=== PATIENT | female | born 1965 | race Caucasian/White ===

== ENCOUNTER 2023-01-24 19:53 | Outpatient (CLI) | payer BC, SELFPAY | END 2023-01-24 19:54 | disposition home or self-care (01) | LOC: SLEEP 19:55 | PROVIDERS: PCP Physician Assistant; Visit Provider Internal Medicine | DX: G47.33 Obstructive sleep apnea (adult) (pediatric) (principal) | CPT/HCPCS: 95810; 95811 ==

== ENCOUNTER 2023-02-15 07:36 | Inpatient (IN) | payer BC, SELFPAY ==
[2023-02-15] VITALS (25 sets, daily range): BP systolic 92–134; BP diastolic 46–94; PULSE 65–90; RESP 14–20; TEMP 36.8–37.4; O2SAT 90–98; BMI 31.1
[2023-02-15] MEDS: LACTATED RINGERS 1000 ML 1,000 ML 100 ML IV ×2 (08:10→18:32)
[2023-02-15] MEDS: SODIUM CHLORIDE 0.9 % (FLUSH) 10 ML SYRINGE IVF (08:10)
[2023-02-15] MEDS: BUPIVACAINE 0.25% 30 ML INJECTION (10:58)
--- NOTE | 2023-02-15 11:44 | W.ANESCHARGE ---
Anesthesia Charges Start Date/Time Anesthesia Start Date: 02/15/23 Anesthesia Start Time: 09:07 Stop Date/Time Anesthesia Stop Date: 02/15/23 Anesthesia Stop Time: 14:30
--- NOTE | 2023-02-15 12:03 | SUR.OPER ---
Call placed to Ary, patients' sister and update was given.
--- NOTE | 2023-02-15 14:11 | SUR.OPER ---
Time out completed prior to bilaterally tap blocks with Charleen Parra MD
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
--- NOTE | 2023-02-15 14:27 | W.PM.NB ---
Nerve Block Nerve Block Time Seen by Provider: 02:19 Date Seen: 02/15/23 Type of block requested by surgeon for post-operative analgesia: TAP Side: bilateral Time out performed: Yes Verification of patient name: Yes Verification of date of : Yes Site marking: site marked Name of person performing procedure: Fidel Continuous monitoring Was continuous monitoring of O2 sat, B/P, game preserve manager, recorded every 15 minutes?: Yes Procedure Checklist: sterile prep, needles and gloves Ultrasound guided. Images saved: Yes Medications given in 5ml increments after negative aspiration: Marcaine %: 0.25 mL: 30 Needle gauge: 20 and Exparel mL: 10 Patient tolerated procedure well: Yes Additional comments: Needle noted adjacent to nerve Block Charges Block Charge (with Pro Fee): TAP Bilateral Use of Ultrasound Machine for Block: Yes- US Guidance/pain block
--- NOTE | 2023-02-15 14:33 | W.ANESCHARGE ---
Anesthesia Charges Start Date/Time Anesthesia Start Date: 02/15/23 Anesthesia Start Time: 09:07 Stop Date/Time Anesthesia Stop Date: 02/15/23 Anesthesia Stop Time: 14:30
[2023-02-15] MEDS: fentaNYL 100 MCG/2 ML inj 50 MCG IVP ×2 (14:42→15:08)
[2023-02-15] MEDS: HYDROmorphone 0.5 mg/0.5 ml inj IVP ×3 (15:18→15:52)
--- NOTE | 2023-02-15 19:36 | CRLHL7_ITS ---
For Patients: As a result of the Century Cures Act, medical imaging exams and procedure reports are released immediately into your electronic medical record. You may view this report before your referring provider. If you have questions, please contact your health care provider. INDICATION: Respiratory distress. TECHNIQUE: Chest 1 views. COMPARISON: None. FINDINGS: Cardiovascular and mediastinum: Prominent heart size accentuated by low lung volumes. Lungs and pleural spaces: Low lung volumes. Coarse interstitial markings. Lungs are clear. No sign of infiltrate or mass. No sign of pleural effusion. No pneumothorax. Bones and soft tissues: No significant findings. IMPRESSION: Prominent heart size and coarse interstitial markings, accentuated by low lung volumes. No focal consolidations. Dictated by Jann Padilla MD @ 02/15/2023 8:19:28 PM (Electronically Signed)
[2023-02-15] MEDS: HYDROCODONE-ACETAMIN 5-325 MG 1 TAB PO (22:52)
[2023-02-15] MEDS: ACETAMINOPHEN 325 MG TABLET 650 MG PO (22:52)
--- NOTE | 2023-02-15 23:23 | PC.NURSE ---
Shift [id number]- Patient returns from PACU at approximately 1530. She is requiring 2L O2 via nasal cannula initially, but oxygen needs increase and patient is switched to oxymask at 3L due to mouth breathing. Breathing also sounds gurgly and wet. RN aggressive with pulmonary toileting- cough, deep breath, IS, and eventually aerobika. Upon entering at one point, RN noticed vomit under patient's oxymask- unwitnessed episode. Patient still sleepy from sx. Marcus Duque updated- see new orders. Abdominal binder is loosened per . Dr. Mckoy also consults. As patient became slightly more alert throughout evening and after continuing aggressive pulmonary toileting, oxygen was able to be weaned down to 1L O2. She is quite painful this evening- PRN pain medication administered. Ice applied to abdomen throughout.
--- NOTE | 2023-02-15 23:38 | PM.IMPN1 ---
Progress Note: A&P Assessment and plan (1) Hypoxemia requiring supplemental oxygen: Problem details: Impart this is from the lingering effects of the anesthesia that she received. Additionally she has atelectasis clinically bibasilarly and radiographically on the left. With her prominent aortic stenosis will need to consider the possibility of evolving heart failure. Status: Acute (2) Status post repair of ventral hernia: Status: Acute (3) Aortic valve stenosis: Status: Acute Plan 1. Will follow with surgery while patient is in hospital. 2. Attempt to wean off oxygen as she becomes more arousable. 3. Will check a brain atretic peptide level, troponin I, electrocardiogram. Will review her outside medical records and consider the possibility of ordering echocardiogram as well. Time Spent With Patient Total time spent: 30 minutes Subjective Time Seen by Provider: 21:00 Date Seen: 02/15/23 Interval history: 57-year-old woman who underwent an elective ventral hernia repair today. Patient's general surgeon, Dr. Saleh, asked the hospitalist to assist with patient's postop hypoxia. Patient ordinarily does not require oxygen support at home. Postoperatively patient continue to require oxygen. On arrival to the floor patient was receiving oxygen at 2 liters/minute via nasal cannula. Shortly after arriving to the floor her oxygen needs increased such that she was requiring OxyMask use at 3-4 liters/minute. When patient started to awake and be more interactive she was requiring less oxygen and now the oxygen administration is being decreased according to her needs. While patient was on the OxyMask at 3-4 liters/minute she did have an episode of regurgitation. Her oxygen needs did not increase after this. In fact as patient became more arousable her oxygen needs decreased subsequently. Exam Narrative: Exam Narrative: Patient is awake and in no acute distress. Appears comfortable. Has OxyMask on at 3 liters/minute. Saturating 98%. Alert, oriented to self, place, time, situation. Friendly, cooperative, articulate. Mood and affect are congruent. Airway is clear. Mallampati 2 airway. Neck is supple. Midline trachea. Lungs are clear save some bibasilar end inspiratory rales, left more so than right. Heart tones with regular rhythm, normal S1-S2. Grade 3/6 systolic murmur right upper sternal border. Abdomen is soft. Moves all 4 extremities. No focal motor neurologic deficits. Const: Vital Signs, click to edit/add: Vital Signs - 24 hr 02/15/23 08:02 02/15/23 14:27 02/15/23 14:35 Temperature 98.3 F 98.2 F Pulse Rate 82 80 79 Pulse Rate [Right Pulse Oximeter] Respiratory Rate 16 16 16 Blood Pressure 131/64 112/63 132/81 Blood Pressure [Le ft Arm] Pulse Oximetry 94 98 98 Oxygen Delivery Me thod Room Air OxyMask OxyMask Oxygen Flow Rate 6 6 02/15/23 14:40 02/15/23 14:45 02/15/23 14:50 Temperature Pulse Rate 77 75 72 Pulse Rate [Right Pulse Oximeter] Respiratory Rate 16 16 16 Blood Pressure 117/56 L 112/66 114/68 Blood Pressure [Le ft Arm] Pulse Oximetry 98 97 95 Oxygen Delivery Me thod Nasal Cannula Nasal Cannula Nasal Cannula Oxygen Flow Rate 4 4 4 02/15/23 15:10 02/15/23 14:55 02/15/23 15:00 Temperature Pulse Rate 69 73 68 Pulse Rate [Right Pulse Oximeter] Respiratory Rate 16 16 16 Blood Pressure 116/54 L 112/65 111/62 Blood Pressure [Le ft Arm] Pulse Oximetry 97 95 96 Oxygen Delivery Me thod Nasal Cannula Nasal Cannula Nasal Cannula Oxygen Flow Rate 4 4 4 02/15/23 15:05 02/15/23 15:15 02/15/23 15:20 Temperature Pulse Rate 69 71 68 Pulse Rate [Right Pulse Oximeter] Respiratory Rate 16 16 16 Blood Pressure 123/67 122/59 L 110/46 L Blood Pressure [Le ft Arm] Pulse Oximetry 97 97 97 Oxygen Delivery Me thod Nasal Cannula Nasal Cannula Nasal Cannula Oxygen Flow Rate 4 4 4 02/15/23 15:25 02/15/23 15:30 02/15/23 15:30 Temperature Pulse Rate 65 77 Pulse Rate [Right Pulse Oximeter] 77 Respiratory Rate 16 14 14 Blood Pressure 102/64 Blood Pressure [Le ft Arm] 125/75 125/75 Pulse Oximetry 97 96 Oxygen Delivery Me thod Nasal Cannula Nasal Cannula Nasal Cannula Oxygen Flow Rate 4 2 2 02/15/23 15:45 02/15/23 16:00 02/15/23 16:15 Temperature 98.2 F Pulse Rate Pulse Rate [Right Pulse Oximeter] 90 67 67 Respiratory Rate 14 14 14 Blood Pressure Blood Pressure [Le ft Arm] 134/59 L 123/66 102/64 Pulse Oximetry 95 95 90 Oxygen Delivery Me thod Nasal Cannula Nasal Cannula OxyMask Oxygen Flow Rate 2 1 3 02/15/23 17:00 02/15/23 16:30 02/15/23 17:30 Temperature Pulse Rate Pulse Rate [Right Pulse Oximeter] 65 70 72 Respiratory Rate 18 16 18 Blood Pressure Blood Pressure [Le ft Arm] 93/68 111/65 102/63 Pulse Oximetry 91 93 91 Oxygen Delivery Me thod OxyMask OxyMask OxyMask Oxygen Flow Rate 3 3 3 02/15/23 18:00 02/15/23 19:00 02/15/23 20:00 Temperature 99.1 F Pulse Rate Pulse Rate [Right Pulse Oximeter] 85 75 86 Respiratory Rate 18 18 18 Blood Pressure Blood Pressure [Le ft Arm] 92/69 98/52 L 100/70 Pulse Oximetry 91 95 95 Oxygen Delivery Me thod OxyMask OxyMask OxyMask Oxygen Flow Rate 3 2 2 02/15/23 21:00 Temperature Pulse Rate Pulse Rate [Right Pulse Oximeter] 76 Respiratory Rate 18 Blood Pressure Blood Pressure [Le ft Arm] 102/94 H Pulse Oximetry 98 Oxygen Delivery Me thod OxyMask Oxygen Flow Rate 2 Documenting provider has reviewed patient's vital signs: yes Imaging Chest x-ray: Attestation: I have reviewed the pertinent imaging results. Radiologist's impression: Lung neely in the setting of low inspiration have some coarse markings with left lower lobe atelectatic changes. No obvious infiltrates. No masses. No pneumothorax. Cardiac silhouette is prominent.
[2023-02-16] VITALS (8 sets, daily range): BP systolic 87–145; BP diastolic 48–121; PULSE 70–91; RESP 16–22; TEMP 36.9–37.3; O2SAT 89–96
[2023-02-16 02:11] LABS: NT Pro B Type NatriureticPept* 1740 pg/mL; Troponin I* < 0.01 ng/mL (0.01-0.04)
[2023-02-16] MEDS: LACTATED RINGERS 1000 ML 1,000 ML 100 ML IV (04:11)
[2023-02-16] MEDS: HYDROmorphone 0.5 mg/0.5 ml inj IVP ×2 (04:21→11:49)
[2023-02-16 06:14] LABS: HCO3 VBG 31 mmol/L (21-28); PCO2 VBG 54 mmHG (40-50); PO2 VBG 45.2 mmHG (25-47)
[2023-02-16 06:29] LABS: Hematocrit 32.7 % (33.0-51.0); Hemoglobin* 10.2 gm/dL (12.0-16.0); Mean Corpuscular HGB Conc 31 gm/dL (32-36); Mean Corpuscular Hemoglobin 29 pg (26-34); Mean Corpuscular Volume 94 fL (80-100); Platelet Count* 236 K/uL (140-440); Red Blood Count 3.48 m/uL (4.00-5.20); White Blood Count* 7.44 K/uL (4.50-11.00)
[2023-02-16 06:34] LABS: Slide Review Reflex No
[2023-02-16 06:47] LABS: D Dimer Quantitative* 0.95 ug/ml (0.00-0.50)
[2023-02-16 07:11] LABS: Troponin I* < 0.01 ng/mL (0.01-0.04)
--- NOTE | 2023-02-16 08:01 | PC.NURSE ---
Pt alert and oriented x3. Afebrile. Pt reports pain 5-6/10 in abdomen, pain managed with PRN medications. Pt abdominal dressing is CDI. Pt is on 1 L of nasal cannula O2 stats have been between 93-96%. Pt denies SOB, chest pain, and N/V. Pt is up A1 with walker and gait belt. Pt is tolerating liquids and ice chips.
[2023-02-16] MEDS: ACETAMINOPHEN 325 MG TABLET 650 MG PO (08:03)
[2023-02-16] MEDS: HYDROCODONE-ACETAMIN 5-325 MG 1 TAB PO ×3 (08:38→18:48)
--- NOTE | 2023-02-16 11:41 | PM.GSPN ---
Subjective Subjective Date Seen: 02/16/23 Interval history: Patient was having shortness of breath last night. She was sleepy postoperatively. The nurse also noted may be vomit on her oxygen mask. Patient has not had anything to eat or drink last night since her surgery. Chest x-ray was obtained and showed low lung volumes but no consolidation. Her troponin was negative. Today patient still complains of difficulties taking a deep breath. She received IV pain medication only once and oral pain medication was avoided to let her wake up more. Patient has not been out of bed. She had good urine output overnight. Her SUSANNA drain only had 20 mL out. Exam Narrative: Exam Narrative: Abdomen is not distended, somewhat tender to palpation on the left side but not on the right side. SUSANNA drain with scant amount of dark blood in the tubing. Surgical incision is clean and dry. Const: Vital Signs, click to edit/add: Vital Signs - 24 hr 02/15/23 14:27 02/15/23 14:35 02/15/23 14:40 Temperature 98.2 F Pulse Rate 80 79 77 Pulse Rate [Right Pulse Oximeter] Respiratory Rate 16 16 16 Blood Pressure 112/63 132/81 117/56 L Blood Pressure [Le ft Arm] Pulse Oximetry 98 98 98 Oxygen Delivery Me thod OxyMask OxyMask Nasal Cannula Oxygen Flow Rate 6 6 4 02/15/23 14:45 02/15/23 14:50 02/15/23 15:10 Temperature Pulse Rate 75 72 69 Pulse Rate [Right Pulse Oximeter] Respiratory Rate 16 16 16 Blood Pressure 112/66 114/68 116/54 L Blood Pressure [Le ft Arm] Pulse Oximetry 97 95 97 Oxygen Delivery Me thod Nasal Cannula Nasal Cannula Nasal Cannula Oxygen Flow Rate 4 4 4 02/15/23 14:55 02/15/23 15:00 02/15/23 15:05 Temperature Pulse Rate 73 68 69 Pulse Rate [Right Pulse Oximeter] Respiratory Rate 16 16 16 Blood Pressure 112/65 111/62 123/67 Blood Pressure [Le ft Arm] Pulse Oximetry 95 96 97 Oxygen Delivery Me thod Nasal Cannula Nasal Cannula Nasal Cannula Oxygen Flow Rate 4 4 4 02/15/23 15:15 02/15/23 15:20 02/15/23 15:25 Temperature Pulse Rate 71 68 65 Pulse Rate [Right Pulse Oximeter] Respiratory Rate 16 16 16 Blood Pressure 122/59 L 110/46 L 102/64 Blood Pressure [Le ft Arm] Pulse Oximetry 97 97 97 Oxygen Delivery Me thod Nasal Cannula Nasal Cannula Nasal Cannula Oxygen Flow Rate 4 4 4 02/15/23 15:30 02/15/23 15:30 02/15/23 15:45 Temperature 98.2 F Pulse Rate 77 Pulse Rate [Right Pulse Oximeter] 77 90 Respiratory Rate 14 14 14 Blood Pressure Blood Pressure [Le ft Arm] 125/75 125/75 134/59 L Pulse Oximetry 96 95 Oxygen Delivery Me thod Nasal Cannula Nasal Cannula Nasal Cannula Oxygen Flow Rate 2 2 2 02/15/23 16:00 02/15/23 16:15 02/15/23 17:00 Temperature Pulse Rate Pulse Rate [Right Pulse Oximeter] 67 67 65 Respiratory Rate 14 14 18 Blood Pressure Blood Pressure [Le ft Arm] 123/66 102/64 93/68 Pulse Oximetry 95 90 91 Oxygen Delivery Me thod Nasal Cannula OxyMask OxyMask Oxygen Flow Rate 1 3 3 02/15/23 16:30 02/15/23 17:30 02/15/23 18:00 Temperature Pulse Rate Pulse Rate [Right Pulse Oximeter] 70 72 85 Respiratory Rate 16 18 18 Blood Pressure Blood Pressure [Le ft Arm] 111/65 102/63 92/69 Pulse Oximetry 93 91 91 Oxygen Delivery Me thod OxyMask OxyMask OxyMask Oxygen Flow Rate 3 3 3 02/15/23 19:00 02/15/23 20:00 02/15/23 21:00 Temperature 99.1 F Pulse Rate Pulse Rate [Right Pulse Oximeter] 75 86 76 Respiratory Rate 18 18 18 Blood Pressure Blood Pressure [Le ft Arm] 98/52 L 100/70 102/94 H Pulse Oximetry 95 95 98 Oxygen Delivery Me thod OxyMask OxyMask OxyMask Oxygen Flow Rate 2 2 2 02/15/23 23:50 02/15/23 23:50 02/16/23 03:55 Temperature 99.4 F 98.5 F Pulse Rate Pulse Rate [Right Pulse Oximeter] 76 70 Respiratory Rate 20 20 18 Blood Pressure Blood Pressure [Le ft Arm] 99/55 L 94/49 L Pulse Oximetry 93 93 96 Oxygen Delivery Me thod Nasal Cannula Nasal Cannula OxyMask Oxygen Flow Rate 1 1 1 02/16/23 07:00 02/16/23 07:00 02/16/23 07:00 Temperature 99.1 F Pulse Rate Pulse Rate [Right Pulse Oximeter] 81 81 Respiratory Rate 22 22 22 Blood Pressure Blood Pressure [Le ft Arm] 96/61 Pulse Oximetry 92 92 Oxygen Delivery Me thod Nasal Cannula Nasal Cannula Oxygen Flow Rate 1 1 02/16/23 11:09 02/16/23 11:10 Temperature 99 F Pulse Rate Pulse Rate [Right Pulse Oximeter] 80 85 Respiratory Rate 16 Blood Pressure Blood Pressure [Le ft Arm] 96/48 L 87/50 L Pulse Oximetry 93 Oxygen Delivery Me thod Nasal Cannula Oxygen Flow Rate 1 Progress Note: A&P Assessment and plan (1) Status post repair of ventral hernia: Status: Acute Assessment and Plan: 57-year-old female s/p open ventral hernia repair with mesh POD 1. Patient underwent a large hernia repair. I expect that she will need postoperative pain control. She made good amount of urine overnight. We will remove her Sheehan catheter. Patient will continue wearing her abdominal binder on at all times. SUSANNA drain was minimal amount of bloody drainage. I discussed with the patient that she needs to walk at least 3 times a day and use incentive spirometer as much as possible. We can advance her to clear liquid diet but I discussed with the patient to go slow with advancement. Patient is not ready to go home today.
[2023-02-16] MEDS: SERTRALINE 50 MG TABLET 75 MG PO (11:49)
[2023-02-16 11:51] LABS: Chloride* 105 mmol/L (96-114); Potassium* 3.2 mmol/L (3.6-5.1); Sodium* 136 mmol/L (135-149)
[2023-02-16 11:53] LABS: Bilirubin Total* 0.3 mg/dL (0.1-1.5); Creatinine* 0.6 mg/dL (0.5-1.5); Est. Creatinine Clearance* 90.84; Estimated Glomerular Filt Rate 103 ml/min
[2023-02-16 11:54] LABS: Alanine Aminotransferase* 15 U/L (4-35); Alkaline Phosphatase* 76 U/L (40-150); Aspartate Amino Transferase* 27 U/L (12-35); Blood Urea Nitrogen* 6 mg/dL (7-30); Carbon Dioxide* 29 mmol/L (20-32); Glucose* 104 mg/dL (60-115)
[2023-02-16 11:55] LABS: Magnesium* 1.6 mg/dL (1.5-2.6)
[2023-02-16 12:11] LABS: Procalcitonin* 0.08 ng/mL (<0.50)
[2023-02-16 12:25] LABS: Thyroid Stimulating Hormone* 0.465 uIU/mL (0.270-4.20)
--- NOTE | 2023-02-16 16:12 | PM.IMPN1 ---
Progress Note: A&P Assessment and plan (1) Status post repair of ventral hernia: Problem details: - Dr. Saleh of General Surgery 02/15 Status: Acute (2) Hypoxemia requiring supplemental oxygen: Problem details: - ddx: iatrogenic from anesthesia, bibasilar atelectasis, h/o Status: Acute (3) Aortic valve stenosis: Problem details: - repeat limited TTE today Status: Acute Plan - improving, continue to taper supplemental oxygen as tolerated - continue IS at regular intervals Subjective Date Seen: 02/16/23 Interval history: No acute events overnight. Sarah has been able to wean down her supplemental oxygen (currently on 1L per NC). No concerns for hospitalist team today. Exam Narrative: Exam Narrative: GEN: Alert and oriented, sitting comfortably in bedside chair, nontoxic in appearance HEENT: Edentulous, EOMIs bilaterally, no scleral icterus CV: RRR, harsh systolic murmur heard best at left sternal border R: LCTA bilaterally without concerning wheezing Skin: No concerning skin lesions or rashes on exposed skin Neuro: Nonfocal Psych: Appropriate Const: Vital Signs, click to edit/add: Vital Signs - 24 hr 02/15/23 16:15 02/15/23 17:00 02/15/23 16:30 Temperature Pulse Rate [Right Pulse Oximeter] 67 65 70 Pulse Rate [orthos tatic lying Right] Pulse Rate [orthos tatic sitting Righ t] Pulse Rate [orthos tatic standing Rig ht] Respiratory Rate 14 18 16 Blood Pressure [Le ft Arm] 102/64 93/68 111/65 Blood Pressure [or thostatic lying Ri ght Arm] Blood Pressure [or thostatic sitting Right Arm] Blood Pressure [or thostatic standing Right Arm] Pulse Oximetry 90 91 93 Oxygen Delivery Me thod OxyMask OxyMask OxyMask Oxygen Flow Rate 3 3 3 02/15/23 17:30 02/15/23 18:00 02/15/23 19:00 Temperature 99.1 F Pulse Rate [Right Pulse Oximeter] 72 85 75 Pulse Rate [orthos tatic lying Right] Pulse Rate [orthos tatic sitting Righ t] Pulse Rate [orthos tatic standing Rig ht] Respiratory Rate 18 18 18 Blood Pressure [Le ft Arm] 102/63 92/69 98/52 L Blood Pressure [or thostatic lying Ri ght Arm] Blood Pressure [or thostatic sitting Right Arm] Blood Pressure [or thostatic standing Right Arm] Pulse Oximetry 91 91 95 Oxygen Delivery Me thod OxyMask OxyMask OxyMask Oxygen Flow Rate 3 3 2 02/15/23 20:00 02/15/23 21:00 02/15/23 23:50 Temperature Pulse Rate [Right Pulse Oximeter] 86 76 Pulse Rate [orthos tatic lying Right] Pulse Rate [orthos tatic sitting Righ t] Pulse Rate [orthos tatic standing Rig ht] Respiratory Rate 18 18 20 Blood Pressure [Le ft Arm] 100/70 102/94 H Blood Pressure [or thostatic lying Ri ght Arm] Blood Pressure [or thostatic sitting Right Arm] Blood Pressure [or thostatic standing Right Arm] Pulse Oximetry 95 98 93 Oxygen Delivery Me thod OxyMask OxyMask Nasal Cannula Oxygen Flow Rate 2 2 1 02/15/23 23:50 02/16/23 03:55 02/16/23 07:00 Temperature 99.4 F 98.5 F 99.1 F Pulse Rate [Right Pulse Oximeter] 76 70 81 Pulse Rate [orthos tatic lying Right] Pulse Rate [orthos tatic sitting Righ t] Pulse Rate [orthos tatic standing Rig ht] Respiratory Rate 20 18 22 Blood Pressure [Le ft Arm] 99/55 L 94/49 L 96/61 Blood Pressure [or thostatic lying Ri ght Arm] Blood Pressure [or thostatic sitting Right Arm] Blood Pressure [or thostatic standing Right Arm] Pulse Oximetry 93 96 92 Oxygen Delivery Me thod Nasal Cannula OxyMask Nasal Cannula Oxygen Flow Rate 1 1 1 02/16/23 07:00 02/16/23 07:00 02/16/23 11:09 Temperature 99 F Pulse Rate [Right Pulse Oximeter] 81 80 Pulse Rate [orthos tatic lying Right] Pulse Rate [orthos tatic sitting Righ t] Pulse Rate [orthos tatic standing Rig ht] Respiratory Rate 22 22 16 Blood Pressure [Le ft Arm] 96/48 L Blood Pressure [or thostatic lying Ri ght Arm] Blood Pressure [or thostatic sitting Right Arm] Blood Pressure [or thostatic standing Right Arm] Pulse Oximetry 92 93 Oxygen Delivery Me thod Nasal Cannula Nasal Cannula Oxygen Flow Rate 1 1 02/16/23 11:10 02/16/23 11:28 02/16/23 15:00 Temperature 98.7 F Pulse Rate [Right Pulse Oximeter] 85 81 Pulse Rate [orthos tatic lying Right] 84 Pulse Rate [orthos tatic sitting Righ t] 91 Pulse Rate [orthos tatic standing Rig ht] 91 Respiratory Rate 20 Blood Pressure [Le ft Arm] 87/50 L 115/66 Blood Pressure [or thostatic lying Ri ght Arm] 117/61 Blood Pressure [or thostatic sitting Right Arm] 142/121 H Blood Pressure [or thostatic standing Right Arm] 145/74 H Pulse Oximetry 90 Oxygen Delivery Me thod Nasal Cannula Oxygen Flow Rate 1 02/16/23 15:00 02/16/23 15:00 Temperature Pulse Rate [Right Pulse Oximeter] 81 Pulse Rate [orthos tatic lying Right] Pulse Rate [orthos tatic sitting Righ t] Pulse Rate [orthos tatic standing Rig ht] Respiratory Rate 20 20 Blood Pressure [Le ft Arm] Blood Pressure [or thostatic lying Ri ght Arm] Blood Pressure [or thostatic sitting Right Arm] Blood Pressure [or thostatic standing Right Arm] Pulse Oximetry 90 Oxygen Delivery Me thod Nasal Cannula Oxygen Flow Rate 1 Labs Labs: Laboratory Results - last 24 hr 02/16/23 02/16/23 01:10 06:06 WBC 7.44 RBC 3.48 L Hgb 10.2 L Hct 32.7 L MCV 94 MCH 29 MCHC 31 L Plt Count 236 D-Dimer Quant (PE/DVT) 0.95 H VBG pH 7.370 VBG pCO2 54 H VBG pO2 45.2 VBG HCO3 31 H Sodium 136 Potassium 3.2 L Chloride 105 Carbon Dioxide 29 BUN 6 L Creatinine 0.6 Estimated Creat Clear 90.84 Estimated GFR 103 Glucose 104 Calcium 8.0 L Magnesium 1.6 Total Bilirubin 0.3 AST 27 ALT 15 Alkaline Phosphatase 76 Troponin I < 0.01 L < 0.01 L C-Reactive Protein 7.0 H NT-Pro-B Natriuret Pep 1740 Total Protein 6.0 Albumin 3.0 L Procalcitonin 0.08 TSH 0.465
[2023-02-16] MEDS: POTASSIUM CHLORIDE 10 MEQ CAPSULE ER PO (17:31)
--- NOTE | 2023-02-16 19:29 | PC.NURSE ---
End of Shift: Patient pleasant and cooperative. Patient vitally stable, lungs clear, BS hypoactive, IV running NS at 50ml. Patient SBA assist, and urinating. Patient rates pain at most 5/10, dilauded 0.5 mg given once and prn norco 2 tabs given when due. Abdominal incision C/D/I. Patient tolerating clear liquids, but not taking in too much so she does not have to urinate. Patient on 1 L NS sating 90-90%. Patient has walked the delvalle x3 with this health technical writer.
[2023-02-16] MEDS: LACTATED RINGERS 1000 ML 1,000 ML 50 ML IV (19:59)
[2023-02-17] VITALS (8 sets, daily range): BP systolic 101–132; BP diastolic 51–66; PULSE 69–91; RESP 16–20; TEMP 36.4–37.4; O2SAT 90–93
[2023-02-17] MEDS: HYDROCODONE-ACETAMIN 5-325 MG 1 TAB PO ×2 (02:12→18:56)
--- NOTE | 2023-02-17 06:19 | PC.NURSE ---
[id number] Pt pleasant and cooperative, pain controlled with prn oral pain medications. abd dressing C/D/I. Abd binder and ice to site, SUSANNA drain emptied q4h throughout shift. Tolerating ambulation, walked halls x1, to br and back to bed x4. Passing gas throughout shift, no N/V, chest pain. Pt encouraged to take deep breaths, IS and aerobika completed with vitals. Pt on 1 LPM O2 while at rest, Pt on RA when ambulating, O2 sats ranged from 52-76% when returned to bed after ambulating to br, she does acknowledge some lightheaded/dizziness with the hypoxia.
[2023-02-17 06:44] LABS: HCO3 VBG 30 mmol/L (21-28); PCO2 VBG 48 mmHG (40-50); PO2 VBG 74.5 mmHG (25-47); pH VBG 7.397 (7.32-7.43)
[2023-02-17 06:48] LABS: Basophils Absolute Auto 0.02 K/uL (0.00-0.30); Basophils Percent Auto 0.3 % (0.0-3.0); Eosinophils Absolute Auto 0.24 K/uL (0.00-0.50); Eosinophils Percent Auto 3.2 % (0.0-7.0); Hematocrit 32.3 % (33.0-51.0); Hemoglobin* 10.1 gm/dL (12.0-16.0); Immature Granulocytes Abs Auto 0.01 K/uL (0.00-0.30); Immature Granulocytes Pct Auto 0.1 %; Lymphocytes Percent Auto 19.4 % (20-44); Mean Corpuscular HGB Conc 31 gm/dL (32-36); Mean Corpuscular Hemoglobin 30 pg (26-34); Mean Corpuscular Volume 94 fL (80-100); Monocytes Percent Auto 8.9 % (0.0-11.0); Neutrophils Absolute Auto 5.16 K/uL (1.7-7.0); Neutrophils Percent Auto 68.1 % (42.0-72.0); Platelet Count* 248 K/uL (140-440); RDW Coefficient of Variation % 12.2 % (11.5-15.5); Red Blood Count 3.42 m/uL (4.00-5.20); White Blood Count* 7.57 K/uL (4.50-11.00)
[2023-02-17 07:17] LABS: Chloride* 104 mmol/L (96-114); Potassium* 3.2 mmol/L (3.6-5.1); Sodium* 136 mmol/L (135-149)
[2023-02-17 07:20] LABS: Blood Urea Nitrogen* 5 mg/dL (7-30); Carbon Dioxide* 28 mmol/L (20-32); Creatinine* 0.4 mg/dL (0.5-1.5); Est. Creatinine Clearance* 136.27; Estimated Glomerular Filt Rate 114 ml/min; Glucose* 94 mg/dL (60-115)
[2023-02-17 07:21] LABS: Calcium* 7.9 mg/dL (8.4-10.6)
[2023-02-17 07:33] LABS: Slide Review Reflex No
--- NOTE | 2023-02-17 08:00 | PM.GSPN ---
Subjective Subjective Date Seen: 02/17/23 Interval history: Patient is recovering well. Her pain is controlled with p.o. pain medication. She mostly complains of pain with movement. Her breathing is getting better. She is on 1 L of oxygen at night. She passed gas. She tolerated clears yesterday. Exam Narrative: Exam Narrative: Abdomen is soft, not distended, there is some tenderness to palpation in the left mid abdomen. Surgical incision was examined and Steri-Strips are intact. There is either faint erythema versus ecchymosis on the right side of surgical incision. SUSANNA drain with serosanguineous fluid in the bulb. Const: Vital Signs, click to edit/add: Vital Signs - 24 hr 02/16/23 11:09 02/16/23 11:10 02/16/23 11:28 Temperature 99 F Pulse Rate [Right Pulse Oximeter] 80 85 Pulse Rate [orthos tatic lying Right] 84 Pulse Rate [orthos tatic sitting Righ t] 91 Pulse Rate [orthos tatic standing Rig ht] 91 Respiratory Rate 16 Blood Pressure [Le ft Arm] 96/48 L 87/50 L Blood Pressure [or thostatic lying Ri ght Arm] 117/61 Blood Pressure [or thostatic sitting Right Arm] 142/121 H Blood Pressure [or thostatic standing Right Arm] 145/74 H Pulse Oximetry 93 Oxygen Delivery Me thod Nasal Cannula Oxygen Flow Rate 1 02/16/23 15:00 02/16/23 15:00 02/16/23 15:00 Temperature 98.7 F Pulse Rate [Right Pulse Oximeter] 81 81 Pulse Rate [orthos tatic lying Right] Pulse Rate [orthos tatic sitting Righ t] Pulse Rate [orthos tatic standing Rig ht] Respiratory Rate 20 20 20 Blood Pressure [Le ft Arm] 115/66 Blood Pressure [or thostatic lying Ri ght Arm] Blood Pressure [or thostatic sitting Right Arm] Blood Pressure [or thostatic standing Right Arm] Pulse Oximetry 90 90 Oxygen Delivery Me thod Nasal Cannula Nasal Cannula Oxygen Flow Rate 1 1 02/16/23 19:00 02/16/23 23:00 02/16/23 23:00 Temperature 98.9 F Pulse Rate [Right Pulse Oximeter] 82 Pulse Rate [orthos tatic lying Right] Pulse Rate [orthos tatic sitting Righ t] Pulse Rate [orthos tatic standing Rig ht] Respiratory Rate 18 18 20 Blood Pressure [Le ft Arm] 105/65 Blood Pressure [or thostatic lying Ri ght Arm] Blood Pressure [or thostatic sitting Right Arm] Blood Pressure [or thostatic standing Right Arm] Pulse Oximetry 89 94 Oxygen Delivery Me thod Nasal Cannula Nasal Cannula Oxygen Flow Rate 1 1 02/16/23 23:00 02/17/23 02:48 Temperature 98.4 F 98.9 F Pulse Rate [Right Pulse Oximeter] 83 89 Pulse Rate [orthos tatic lying Right] Pulse Rate [orthos tatic sitting Righ t] Pulse Rate [orthos tatic standing Rig ht] Respiratory Rate 20 20 Blood Pressure [Le ft Arm] 108/70 132/57 L Blood Pressure [or thostatic lying Ri ght Arm] Blood Pressure [or thostatic sitting Right Arm] Blood Pressure [or thostatic standing Right Arm] Pulse Oximetry 94 90 Oxygen Delivery Me thod Nasal Cannula Nasal Cannula Oxygen Flow Rate 1 1 Progress Note: A&P Assessment and plan (1) Status post repair of ventral hernia: Problem details: - Dr. Velazquez of General Surgery 02/15 Status: Acute Assessment and Plan: 57-year-old female s/p open ventral hernia repair POD 2. Patient is doing well. Will advance her diet to regular. I also will start her on MiraLax. I recommended to continue ambulating (patient walked 4 times yesterday). Will start her on Lovenox for DVT prophylaxis. Patient has faint erythema versus just postoperative ecchymosis to the right of her surgical incision. Since patient is obese and had large hernia repair with mesh, I will put her on Keflex prophylactically. If patient is doing well and is off oxygen today, she is able to discharge home tonight.
[2023-02-17] MEDS: SERTRALINE 50 MG TABLET 75 MG PO (08:31)
[2023-02-17] MEDS: cephALEXin 500 MG CAPSULE PO ×2 (08:32→21:43)
[2023-02-17] MEDS: POTASSIUM CHLORIDE 10 MEQ CAPSULE ER PO ×2 (08:32→18:26)
[2023-02-17] MEDS: polyethylene glycoL 3350 17 GM PACK PO (08:33)
[2023-02-17] MEDS: ACETAMINOPHEN 325 MG TABLET 650 MG PO ×2 (08:42→15:51)
--- NOTE | 2023-02-17 13:24 | PC.SOCIAL ---
Met with pt and pt's sister, Skyler, in pt's room. Pt's sister requested to meet with social work to discuss discharge plans. Pt's sister informed that pt lives at the [facility] and wondered if pt was going to be discharged with home health care orders for therapy. Informed pt and pt's sister that pt is not currently being evaluated by therapy. Pt's sister states that when pt gets up to transfer pt is getting out of breath easier. This worker will discuss with MD. Met with MD and discussed. MD states that pt will not discharge until pt is off oxygen. Provided pt's sister's concerns. MD will order therapy to evaluate. Met with pt and pt's sister in pt's room briefly and informed them that MD will complete a therapy order and therapy will assess pt. Pt and pt's sister agreed that would be best. Social work will follow up as necessary.
[2023-02-17] MEDS: LACTATED RINGERS 1000 ML 1,000 ML 50 ML IV (14:13)
--- NOTE | 2023-02-17 14:41 | CRLHL7_ITS ---
For Patients: As a result of the Century Cures Act, medical imaging exams and procedure reports are released immediately into your electronic medical record. You may view this report before your referring provider. If you have questions, please contact your health care provider. Indication: Hypoxia, elevated D-dimer Technique: CT chest with IV contrast, PE protocol Please note that all CT scans at this facility use dose modulation, iterative reconstruction, and/or weight-based dosing when appropriate to reduce radiation dose to as low as reasonably achievable. Comparison: None Findings: No supraclavicular mass or lymphadenopathy. Normal thyroid. The central airways appear patent. The esophagus is decompressed. Small hiatal hernia. Heart may be enlarged. Normal course and caliber of the thoracic aorta and the pulmonary arteries. No definite pulmonary artery filling defects. There are scattered prominent mediastinal lymph nodes, for example in AP window lymph node (series 4, image 52) measures 1.0 cm. No chest wall mass. Small bilateral pleural effusions. Bibasilar atelectasis. Probable interlobular septal thickening. No definite acute osseous abnormality. Impression: 1. No evidence of pulmonary embolism. 2. Small effusions and pulmonary edema. Please note that all CT scans at this facility use dose modulation, iterative reconstruction, and/or weight-based dosing when appropriate to reduce radiation dose to as low as reasonably achievable. Dictated by Leno Sanford MD @ 02/17/2023 5:56:39 PM (Electronically Signed)
--- NOTE | 2023-02-17 14:42 | PC.NURSE ---
Addendum entered by Jordyn Wang RN 02/17/23 15:29: Correction: Pt on 0.5 L O2 Addendum entered by Jordyn Wang RN 02/17/23 14:57: Sats dropped below 90. Ambulated x4 in the delvalle with one episode of lightheadedness and dizziness. Pt needing to sit in the chair. Complained of abd pain 4/10 PRN Tylenol given with relief. Regular diet for breakfast, pt only ate 20%. Declined lunch. SUSANNA drain patient and emptied per protocol. Abd dressing c/d/i. Original Note: Pt A&O. SBA with gait belt. Pt remains on 1 L of O2 with sats in the low 90s. Attempted to wean with no success, sats dropped to the low
--- NOTE | 2023-02-17 14:54 | PM.IMPN1 ---
Progress Note: A&P Assessment and plan (1) Status post repair of ventral hernia: Problem details: - Dr. Velazquez of General Surgery 02/15 Status: Acute (2) Hypoxemia requiring supplemental oxygen: Problem details: - ddx: iatrogenic from anesthesia, bibasilar atelectasis, - mildly elevated D-dimer noted; given patient's persistent hypoxia, will obtain CTA to evaluate Status: Acute (3) Aortic valve stenosis: Problem details: - repeat limited TTE 02/16: Final Impressions: Limited Echocardiogram performed 1. Technically limited exam. 2. Mild to moderate aortic stenosis [peak velocity 2.7 m/s, mean gradient 17 mmHg, and valve area 1.4 cm2]. The aortic valve appears trileaflet. 3. LVEF estimate 55-60%. Normal LV size and wall thickness. 4. Normal RV size and global function. 5. IVC not seen. Status: Acute Plan - per above - Lovenox for prophylaxis - will be appropriate for discharge home when stable on room air Subjective Date Seen: 02/17/23 Interval history: No acute events overnight. Patient has been unsuccessful in weaning off of oxygen totally. She seems to take shallow breath and has also struggled with successful IS. Limited repeat TTE on 02/16 exhibits stability regarding patient's . Exam Narrative: Exam Narrative: GEN: Alert and answering questions appropriately, sitting comfortably in bedside chair HEENT: Edentulous, EOMIs bilaterally, no scleral icterus CV: RRR, harsh systolic murmur heard best at left sternal border without concerning finding R: Decreased sounds bilateral bases, no tachypnea at rest Ext: wwp, no concerning edema Skin: No concerning skin lesions or rashes on exposed skin Neuro: Nonfocal Psych: Appropriate Const: Vital Signs, click to edit/add: Vital Signs - 24 hr 02/16/23 15:00 02/16/23 15:00 02/16/23 15:00 Temperature 98.7 F Pulse Rate [Right Pulse Oximeter] 81 81 Respiratory Rate 20 20 20 Blood Pressure [Le ft Arm] 115/66 Pulse Oximetry 90 90 Oxygen Delivery Me thod Nasal Cannula Nasal Cannula Oxygen Flow Rate 1 1 02/16/23 19:00 02/16/23 23:00 02/16/23 23:00 Temperature 98.9 F Pulse Rate [Right Pulse Oximeter] 82 Respiratory Rate 18 18 20 Blood Pressure [Le ft Arm] 105/65 Pulse Oximetry 89 94 Oxygen Delivery Me thod Nasal Cannula Nasal Cannula Oxygen Flow Rate 1 1 02/16/23 23:00 02/17/23 02:48 02/17/23 08:19 Temperature 98.4 F 98.9 F 98.4 F Pulse Rate [Right Pulse Oximeter] 83 89 91 Respiratory Rate 20 20 18 Blood Pressure [Le ft Arm] 108/70 132/57 L 123/66 Pulse Oximetry 94 90 92 Oxygen Delivery Me thod Nasal Cannula Nasal Cannula Nasal Cannula Oxygen Flow Rate 1 1 1 02/17/23 07:00 02/17/23 08:00 02/17/23 11:00 Temperature 98.2 F Pulse Rate [Right Pulse Oximeter] 84 Respiratory Rate 18 18 18 Blood Pressure [Le ft Arm] 102/51 L Pulse Oximetry 91 92 Oxygen Delivery Me thod Nasal Cannula Nasal Cannula Oxygen Flow Rate 1 0.5 Labs Labs: Laboratory Results - last 24 hr 02/17/23 05:49 WBC 7.57 RBC 3.42 L Hgb 10.1 L Hct 32.3 L MCV 94 MCH 30 MCHC 31 L RDW Coeff of Zev 12.2 Plt Count 248 Neut % (Auto) 68.1 Lymph % (Auto) 19.4 L [place] % (Auto) 8.9 Eos % (Auto) 3.2 Baso % (Auto) 0.3 Neut # (Auto) 5.16 Lymph # (Auto) 1.50 [place] # (Auto) 0.70 Eos # (Auto) 0.24 Baso # (Auto) 0.02 VBG pH 7.397 VBG pCO2 48 VBG pO2 74.5 H VBG HCO3 30 H Sodium 136 Potassium 3.2 L Chloride 104 Carbon Dioxide 28 BUN 5 L Creatinine 0.4 L Estimated Creat Clear 136.27 Estimated GFR 114 Glucose 94 Calcium 7.9 L
[2023-02-17] MEDS: ENOXAPARIN 40 MG/0.4 ML INJ SUBCUT (21:43)
--- NOTE | 2023-02-17 22:41 | PC.NURSE ---
Addendum entered by Nancy Fournier RN 02/17/23 22:57: SpO2 in bed WITHOUT supplemental o2 at 88-90%. No BM this shift, passing gas per pt. Bandage CDI. SUSANNA drain 32ml serosanguineous fluid Original Note: Nursing Care Hours: [id number] Pt this shift calm and cooperative with cares. Alert and oriented. Stable at 0.5L NC keeping sats above 93%. When at 97%, removed O2 and stable on RA at 94%. Amublated in delvalle without O2, spo2 dropped to 82%. Stood in place while focusing on breathing, spO2 up to 90%. Ambulated back to recliner and spO2 sitting at 87-88%, up to 90% with deep breaths. Placed 0.5L NC. While in bed HS, spO2 at 88-90%. 0.5L placed NOC to avoid alarms and promote sleep. Pain in abdomen 5/10 with movement, treated per eMAR. Ice applied
[2023-02-18] MEDS: HYDROCODONE-ACETAMIN 5-325 MG 1 TAB PO ×3 (01:51→15:30)
[2023-02-18 02:00] VITALS: BP 105/58; PULSE 73; RESP 14; TEMP 36.5; O2SAT 94
--- NOTE | 2023-02-18 06:47 | PC.NURSE ---
Pt alert and oriented x3. Afebrile. Pt reports pain 4/10 in abdomen, pain managed with PRN medications. Pt?s x3 abdominal lap sites are open to air and CDI, bowel sounds are active and pt is voiding.? Pt denies SOB, chest pain, and N/V. Pt is up SBA, tolerating regular diet.?
[2023-02-18 07:45] VITALS: BP 111/55; PULSE 88; RESP 20; TEMP 37.1; O2SAT 96
[2023-02-18] MEDS: cephALEXin 500 MG CAPSULE PO (09:28)
[2023-02-18] MEDS: POTASSIUM CHLORIDE 10 MEQ CAPSULE ER PO (09:28)
[2023-02-18] MEDS: SERTRALINE 50 MG TABLET 75 MG PO (09:28)
[2023-02-18] MEDS: polyethylene glycoL 3350 17 GM PACK PO (09:29)
[2023-02-18] MEDS: FUROSEMIDE 40 MG TABLET PO (10:32)
[2023-02-18 11:00] VITALS: BP 113/66; PULSE 80; RESP 20; TEMP 36.8; O2SAT 96
--- NOTE | 2023-02-18 12:51 | PC.NURSE ---
Eval by Dr. Cortes. New order for PO lasix provided to patient. Encouraged TCDB w/a. IS to 750 times 4 with poor breath hold. Sister Ary updated by primary RN r/to lab, imaging results and plan of care. Pt has walked 3 times in the hallway with SBA of 1 with GB, walker and 0.5L/nc. Adequate I and O. Plan taper off oxygen. Eval by Dr. Quinteros and primary RN will change SUSANNA drain dressing. Abdominal binder can be off when pt is sitting. Place ABD binder on pt prior to activity.
--- NOTE | 2023-02-18 13:16 | PM.GSPN ---
Subjective Subjective Date Seen: 02/18/23 Interval history: The patient feels fine. She does get short of breath with activity. CTA obtained showed no PE, however did show small bilateral pleural effusions. She was given Lasix this morning. Pain is well controlled. No bowel movement but is passing gas. Tolerating regular diet. She has been up walking Exam Narrative: Exam Narrative: General: No acute distress Respiratory: Breath sounds are decreased bilaterally though respiratory effort is good. No crackles CV: Regular rate and rhythm Abdomen: Incision with very faint erythema on the right inferior aspect. Ecchymosis on the left. Drain site is clean. Drain is putting out a small amount of serous fluid. Const: Vital Signs, click to edit/add: Vital Signs - 24 hr 02/17/23 15:00 02/17/23 15:00 02/17/23 15:00 Temperature 98.9 F Pulse Rate [Left A pical] Pulse Rate [Right Pulse Oximeter] 81 81 Respiratory Rate 20 20 20 Blood Pressure [Le ft Arm] 102/62 Pulse Oximetry 93 93 Oxygen Delivery Me thod Nasal Cannula Nasal Cannula Oxygen Flow Rate 0.5 0.5 02/17/23 19:00 02/17/23 23:35 02/17/23 23:35 Temperature 99.3 F 97.6 F Pulse Rate [Left A pical] Pulse Rate [Right Pulse Oximeter] 83 69 69 Respiratory Rate 18 16 16 Blood Pressure [Le ft Arm] 103/61 101/53 L Pulse Oximetry 91 93 Oxygen Delivery Me thod Nasal Cannula Nasal Cannula Oxygen Flow Rate 0.5 0.5 02/17/23 23:35 02/18/23 02:00 02/18/23 07:45 Temperature 97.7 F Pulse Rate [Left A pical] Pulse Rate [Right Pulse Oximeter] 73 Respiratory Rate 16 14 20 Blood Pressure [Le ft Arm] 105/58 L Pulse Oximetry 93 94 96 Oxygen Delivery Me thod Nasal Cannula Nasal Cannula Nasal Cannula Oxygen Flow Rate 0.5 0.5 0.5 02/18/23 07:45 02/18/23 11:00 Temperature 98.8 F 98.2 F Pulse Rate [Left A pical] 88 Pulse Rate [Right Pulse Oximeter] 88 80 Respiratory Rate 20 20 Blood Pressure [Le ft Arm] 111/55 L 113/66 Pulse Oximetry 96 96 Oxygen Delivery Me thod Nasal Cannula Nasal Cannula Oxygen Flow Rate 0.5 0.5 Labs/Imaging Imaging Imaging: CT chest done on 02/18/2023 Findings: No supraclavicular mass or lymphadenopathy. Normal thyroid. The central airways appear patent. The esophagus is decompressed. Small hiatal hernia. Heart may be enlarged. Normal course and caliber of the thoracic aorta and the pulmonary arteries. No definite pulmonary artery filling defects. There are scattered prominent mediastinal lymph nodes, for example in AP window lymph node (series 4, image 52) measures 1.0 cm. No chest wall mass. Small bilateral pleural effusions. Bibasilar atelectasis. Probable interlobular septal thickening. No definite acute osseous abnormality. Impression: 1. No evidence of pulmonary embolism. 2. Small effusions and pulmonary edema. Progress Note: A&P Assessment and plan (1) Status post repair of ventral hernia: Problem details: - Dr. Velazquez of General Surgery 02/15 Status: Acute (2) Hypoxemia requiring supplemental oxygen: Problem details: - ddx: iatrogenic from anesthesia, bibasilar atelectasis, - mildly elevated D-dimer noted; given patient's persistent hypoxia, will obtain CTA to evaluate Status: Acute Plan The patient is a 57-year-old female who is postop day 4 from a open ventral hernia repair with mesh. -awaiting full return of bowel function. Continue regular diet and stool softeners -continue to wean nasal cannula as able. Patient was given Lasix by hospitalist today for small effusions and pulmonary edema. She has had good urine output. -continue IS and ambulation -continue Lovenox for DVT prophylaxis -continue Keflex -DC home when patient off of oxygen.
--- NOTE | 2023-02-18 13:26 | PC.NURSE ---
Dressing to SUSANNA site changed per request of Dr. Quinteros. 67.5 cc total out of drain on day shift. Pt off oxygen for her 4th walk in the hallway, she was 86-87% on room air, enc TCDB and splinting abdomen for forceful coughs, abd binder in place. HR 107-[address] Cortes updated on oxygen saturation levels with ambulation.
--- NOTE | 2023-02-18 14:14 | PM.DS1 ---
DS: Providers Provider Date Seen: 02/18/23 Date of admission: 02/15/23 07:36 Primary care physician: GLORY Ram Admitting Clinician: Duyen Velazquez MD Consults: Hospitalist team for hypoxia Attending Physician on discharge: Duyen Velazquez MD Date of Discharge: 02/18/23 DS: Diagnosis Discharge Diagnosis (1) Status post repair of ventral hernia: Status: Acute Problem details: - Dr. Velazquez of General Surgery 02/15 (2) Hypoxemia requiring supplemental oxygen: Status: Acute Problem details: - ddx: iatrogenic from anesthesia, bibasilar atelectasis, - reassuring repeat TTE, reassuring CTA, tapered off of supplemental oxygen prior to d/c DS: Summary Hospital Course Hospital Course: Sarah was admitted to the hospital for an elective hernia repair with Dr. Velazquez of General Surgery. The hospitalist service was consulted for postoperative hypoxia. Workup: - repeat TTE (given history of ): stable - CTA (elevated d-dimer): no PE, no pneumonia, mild pleural effusions Sarah was able to wean off of supplemental oxygen at rest and with ambulation, cleared by RT to discharge home on RA. She has family that will be staying with her postoperatively to help with ADLs. Status at Discharge Functional status at discharge: independent ambulation Overall status at discharge: patient is progressing back to baseline Time Spent with Patient Time attestation: Total time spent providing and/or coordinating discharge services: Time spent: Less than 30 minutes Exam Narrative: Exam Narrative: GEN: Alert and awake. Appears nontoxic HEENT:? Edentulous, no concerning oral lesions, EOMIs bilaterally, no scleral icterus CV: RRR, harsh systolic murmur heard best at LSB R:? Air movement adequate, no wheezing or rales Ext: wwp, no concerning edema Skin: No concerning skin lesions or rashes on exposed skin Neuro: No focal deficits Const: Vital Signs, click to edit/add: Vital Signs - 24 hr 02/17/23 15:00 02/17/23 15:00 02/17/23 15:00 Temperature 98.9 F Pulse Rate [Left A pical] Pulse Rate [Right Pulse Oximeter] 81 81 Respiratory Rate 20 20 20 Blood Pressure [Le ft Arm] 102/62 Pulse Oximetry 93 93 Oxygen Delivery Me thod Nasal Cannula Nasal Cannula Oxygen Flow Rate 0.5 0.5 02/17/23 19:00 02/17/23 23:35 02/17/23 23:35 Temperature 99.3 F 97.6 F Pulse Rate [Left A pical] Pulse Rate [Right Pulse Oximeter] 83 69 69 Respiratory Rate 18 16 16 Blood Pressure [Le ft Arm] 103/61 101/53 L Pulse Oximetry 91 93 Oxygen Delivery Me thod Nasal Cannula Nasal Cannula Oxygen Flow Rate 0.5 0.5 02/17/23 23:35 02/18/23 02:00 02/18/23 07:45 Temperature 97.7 F Pulse Rate [Left A pical] Pulse Rate [Right Pulse Oximeter] 73 Respiratory Rate 16 14 20 Blood Pressure [Le ft Arm] 105/58 L Pulse Oximetry 93 94 96 Oxygen Delivery Me thod Nasal Cannula Nasal Cannula Nasal Cannula Oxygen Flow Rate 0.5 0.5 0.5 02/18/23 07:45 02/18/23 11:00 Temperature 98.8 F 98.2 F Pulse Rate [Left A pical] 88 Pulse Rate [Right Pulse Oximeter] 88 80 Respiratory Rate 20 20 Blood Pressure [Le ft Arm] 111/55 L 113/66 Pulse Oximetry 96 96 Oxygen Delivery Me thod Nasal Cannula Nasal Cannula Oxygen Flow Rate 0.5 0.5 Discharge Plan Discharge Disposition: Home w/ Parent or Adult Date of Admission: 02/15/23 07:36 Attending Provider on Discharge: Aye Cortes Primary Care Provider: Nemo Mehta Condition: Improved Anticipated Discharge Date/Time: 02/17/23 19:55 Discharge Medications: New hydrocodone-acetaminophen 5-325 mg tablet 1 - 2 tab PO Q6H PRN (Reason: pain) Qty: 30 0RF polyethylene glycol 3350 [Miralax] 17 gram/dose powder 17 g PO DAILY Qty: 119 0RF cephalexin 500 mg capsule 500 mg PO BID Qty: 14 0RF Continued acetaminophen 500 mg tablet 500 mg PO Q6H PRN sertraline 50 mg tablet 75 mg PO DAILY sennosides-docusate sodium [Stimulant Laxative Plus] 8.6-50 mg tablet 2 tab PO BID Held ferrous sulfate 325 mg (65 mg iron) tablet,delayed release (DR/EC) 325 mg PO BID Hold Instructions: Resume on 03/17/23. Discharge Orders: Discharge Order (Routine); Ordered 02/18/23 Ordered By: Aye Cortes Patient Education: Open Herniorrhaphy (DC), Deep Sedation (DC), Post-Operative Instructions: Hernia Repair Activity Level: No strenuous activity Activity Detail: No strenuous activity or lifting more than 15-20 lbs for 4-6 weeks. Wear abdominal binder at all times. Okay to take off for showering. Please strip drain at least 3 times a day and empty. Record drain output and add the amounts for every 24 hours. Discharge Diet: Regular Follow Up Appointments: Duyen Velazquez MD [Staff Physician] - 02/28/23 1:15 pm ([facility] in [place] check in at [address] with Dr. Velazquez for f/u.) Nemo Mehta PA [Primary Care Provider] - (as needed) [facility]: [facility] Inst[facility]
[2023-02-18 14:41] VITALS: BP 102/64; PULSE 77; RESP 20; TEMP 36.8
[2023-02-18 15:45] VITALS: BP 135/71; PULSE 85; RESP 18; TEMP 37.2; O2SAT 93
--- NOTE | 2023-02-18 16:34 | PC.NURSE ---
Discharge- Patient is given discharge teachings verbally and in-print with family member. She strips SUSANNA for 10ccs under RN supervision and does so competently. Abdominal binder in place. She is given pain medications prior to discharge for transportation. IV x2 removed with catheters intact. She leaves via wheelchair (is ambulatory) with all belongings.
== END 2023-02-18 16:25 | disposition home or self-care (01) | DRG 227 ==
PROVIDERS: Family Medicine; Internal Medicine; Admitting Provider Surgery; PCP Physician Assistant; Visit Provider Surgery
PROC: 0WUF0JZ Supplement Abdominal Wall with Synthetic Substitute, Open Approach (ICD-10-PCS; principal; 2023-02-15 09:00)
DX: K43.0 Incisional hernia with obstruction, without gangrene (principal); K66.0 Peritoneal adhesions (postprocedural) (postinfection); I35.0 Nonrheumatic aortic (valve) stenosis; R09.02 Hypoxemia; J95.89 Other postprocedural complications and disorders of respiratory system, not elsewhere classified; J98.11 Atelectasis
CPT/HCPCS: 00750; 00832; 36415; 71045; 71260; 76942; 80048; 80053; 82803; 83735; 83880; 84145; 84443; 84484; 85025; 85027; 85379; 86140; 88302; 93005; 93306; 93308; 93321; 93325; A4467; A9270; C1781; C9290; J0330; J1100; J1170; J1650; J2405; J2704; J3010; J3490; J7120; Q9967

== ENCOUNTER 2025-05-02 11:54 | Outpatient (CLI) | payer MEDICARE, MEDICAID, SELFPAY | END 2025-05-02 11:55 | disposition home or self-care (01) | PROVIDERS: PCP Student in an Organized Health Care Education/Training Program; Visit Provider Emergency Medicine | DX: S49.91XA Unspecified injury of right shoulder and upper arm, initial encounter (principal); W18.2XXA Fall in (into) shower or empty bathtub, initial encounter; Y93.E1 Activity, personal bathing and showering; Y92.031 Bathroom in apartment as the place of occurrence of the external cause | CPT/HCPCS: A0425; A0433 ==

== ENCOUNTER 2025-05-02 12:22 | Emergency (ER) | payer MEDICARE, MEDICAID, SELFPAY ==
[2025-05-02] VITALS (12 sets, daily range): BP systolic 123–146; BP diastolic 57–81; PULSE 73–86; RESP 16–18; TEMP 36.9; O2SAT 92–96
--- OUTSIDE RECORDS SUMMARY | 2025-05-02 12:23 | XMS_ITS ---
Author Organization [facility] ter Care Team Providers Care Development Disability Specialist Name Role Phone Ani Conner Unavailable Unavailable Leno Morales Unavailable Unavailable Allergies and adverse reactions No Known Allergies Care Team Name Role Address Phone Organization Dates Leno Morales [facility] [address] [place] [address], [address], [place], [place], [facility], [place] (Office): [facility] 09/23/2022 - 10/01/2022 Ani Conner [facility] [address] [place] [address] [address], [place], [facility], [place] (Office): : [facility] 09/23/2022 - 10/01/2022 Immunizations Immunization Status Vaccine Details Vaccine Code CodeSystem Ed e Notes TB 2 Step Mantoux Skin Test completed tuberculin skin test; unspecified formulation lotNumber: [id number] expiry: 03/24/2025 Mfg: [employer] Given 0.1 ml Right Forearm intradermally Step 1 of Multi-step with next step required 98 CVX created date: 09/24/2022 consent date: 09/23/2022 administere d date: 09/24/2022 TDAP completed tetanus toxoid, reduced diphtheria toxoid, and acellular pertussis vaccine, adsorbed 115 CVX created date: 09/23/2022 administere d date: 05/15/2018 Influenza-High Dose completed Influenza, high-dose, split virus, trivalent, injectable, preservative free 135 CVX created date: 09/23/2022 administere d date: 06/25/2022 COVID-19 Vaccine dose 1 completed SARS-COV-2 (COVID-19) vaccine, mRNA, spike protein, LNP, preservative free, 100 mcg/0.5mL dose or 50 mcg/0.25mL dose Mfg: MODERNA 207 CVX created date: 09/23/2022 administere d date: 10/27/2020 COVID-19 Vaccine dose 2 completed SARS-COV-2 (COVID-19) vaccine, mRNA, spike protein, LNP, preservative free, 100 mcg/0.5mL dose or 50 mcg/0.25mL dose Mfg: MODERNA 207 CVX created date: 09/23/2022 administere d date: 11/25/2020 COVID-19 Vaccine dose 3 completed unknown vaccine or immune globulin Mfg: MODERNA 999 CVX created date: 09/23/2022 administere d date: 09/15/2021 COVID-19 Vaccine dose 4 completed SARS-COV-2 (COVID-19) vaccine, mRNA, spike protein, LNP, preservative free, 30 mcg/0.3mL dose Mfg: Pfizer 208 CVX created date: 09/23/2022 administere d date: 04/16/2022 COVID-19 Vaccine dose 5 completed SARS-COV-2 (COVID-19) vaccine, mRNA, spike protein, LNP, preservative free, 30 mcg/0.3mL dose Mfg: Pfizer 208 CVX created date: 09/23/2022 administere d date: 08/31/2022 Mental Status Section Date Assessment Total Score Description 10/01/2022 BIMS 15 cognitively int act CAM 0 No delirium ind icated PHQ-9 08 mild depression 09/29/2022 BIMS 15 cognitively int act CAM 0 No delirium ind icated PHQ-9 08 mild depression Problems Problem # Description Date of onset Resolved Date Code CodeSystem Concern Status 1 ACUTE POSTHEMORRHAGIC ANEMIA 09/23/[address] active 2 AFTERCARE FOLLOWING JOINT REPLACEMENT SURGERY 09/23/[address] active 3 CONSTIPATION, UNSPECIFIED 09/23/[address] active 4 IRON DEFICIENCY ANEMIA, UNSPECIFIED 09/23/[address] active 5 PRESENCE OF LEFT ARTIFICIAL HIP JOINT 09/23/[address] active 6 VENTRAL HERNIA WITHOUT OBSTRUCTION OR GANGRENE 09/23/[address] active Reason for Referral No Reasons for Referral Entered Social History Social History Observation Description Start Date End Date Code Code System Current Smoking Status Tobacco smoking consumption unknown 459564803 SNOMED CT Sex Assigned At Female 1965 73347-5 [facility] Gender Identity Vital Signs Code Code System Vitals Name Values and Units Timing Information 8310-5 [facility] Body Temperature Value=98.2 Units= F 09/30/2022 05415-5 INC O2 % BldC Oximetry Value=99.0 Units= % 09/30/2022 39015-2 INC Pain Level Value=1.0 09/30/2022 89799-6 LOINC Weight Qswwk=613.0 Units=Lbs 04/2022 9279-1 INC Respiratory Rate Value=18.0 Units=/m in 09/24/2022 8462-4 INC Blood Pressure-Diastolic Value=88 Un its=mmHg 09/24/2022 8480-6 LOINC Blood Pressure-Systolic Hzpgz=030 Un its=mmHg 09/24/2022 8867-4 LOINC Heart rate Value=71.0 Units=/min 11/2021 8302-2 LOINC Height Value=63.0 Units=Inches 09/24/2022
--- OUTSIDE RECORDS SUMMARY | 2025-05-02 12:23 | XMS_ITS | Clinical Summary ---
Author Organization [facility] Address [facility] [place] [address] Care Team Providers Care Back Feeder Plywood Layup Line Name Role Phone Kendra Whitt MD Primary Care Prov ider Allergies No known active allergies Medications amoxicillin (AMOXIL) 500 mg capsuleIndicatio ns:Aftercare following surgery Take 4 capsules 1 hour prior to any dental procedure, including routine cleaning. 12 Capsule 3 3 Active triamcinolone (ARISTOCORT) 0.5 % ointmentIndicati ons:Eczema, unspecified type Apply topically to affected area(s) two times daily. Use on rash until gone, no more than 2 weeks at any given time. Do no use on face or groin. 100 g 2 4 Active CPAPIndications: MADELEINE (obstructive sleep apnea) RESMED CPAP (E0601) machine for home use at pressure: 5-15cmw, Choice of mask (A7030 or A7034) w/full face cushion (A7031) x1/mo, nasal cushion (A7032) x2/mo, or nasal pillows (A7033) x 2/mo; Length of Need: 99 months; Frequency of use: Daily 1 Each 11 5 Active sertraline 100 mg tabletIndication s:Major depressive disorder, recurrent, moderate (HC) Take 1 Tablet (100 mg) by mouth once daily in the morning. 90 Tablet 3 5 Active Active Problems Problem Noted Date Diagnosed Date Status post total replacemen t of left hip DOS 09/20/22 Dr. Quiros 03/25/2023 MADELEINE 01/24/2023 AHI- 11 02/28/2023 Aortic valve stenosis 11/19/2022 Colloid cyst of third ventricle 11/19/2022 Pap smear for cervical cancer screening 06/24/20 Overview (06/24/2022): 03/2022 NIL/HPV negative. Plan: Pap/HPV due 03/2027 Iron deficiency anemia 05/12/2022 Post-traumatic osteoarthritis of left hip 2021 Encounters Date Type Department Care Team Description 03/20/2025 1:25 PM CDT Office Visit [facility] [address] [place] [address] Kendra Whitt MD Medication Management (Sertraline - happy with dosing ) 03/20/2025 1:00 PM CDT Ancillary Procedure [facility] [address] [place] [address] 03/20/2025 Travel 02/15/2025 Refill [facility] [address] [place] [address] Kendra Whitt MD Refill Request (Sertraline, Sertraline) 02/06/2025 2:40 PM CDT Office Visit [facility] [address] [place] [address] Kendra Whitt MD Medication Management (Sertraline ) 02/06/2025 Travel 02/01/2025 2:00 PM CDT Office Visit [facility] [address] [place] [address] Leno Pappas MD Follow Up (Follow up - yearly visit ) 02/01/2025 Travel from Last 3 Months Immunizations Immunization Administration Dates Next Due COVID-19 VACCINE SPIKEVAX (M ODERNA 50MCG/0.5ML) 12YO+ PFS 08/03/2023 COVID-19 vaccine (Lingt-Bio NTech 30mcg/0.3mL) 12YO+ BIVALENT PF, MDV 08/31/2022 COVID-19 vaccine (PomogatelBio NTech 30mcg/0.3mL) 12YO+ RAINA-SUCROSE PF, MDV 04/16/2022 Influenza, IIV4 08/03/2023,06/25/2022,08/11/2021 Tdap 05/15/2018 Zoster (Shingrix-RZV, recombinant) 12/13/2023, Family History Medical History Relation Name Comments Cancer-breast Maternal Aunt Dementia Mother Anesthesia Malignant Hyperthermia No Family History Anesthesia Problem No Family History Blood Disease No Family History Clotting disorder No Family History Relation Name Status Comments Father (Age 86) ?COD Maternal Aunt Mother Alive Social History Tobacco Use Types Packs/Day Years Used Date Smoking Tobacco: Never Smokeless Tobacco: Never Tobacco Cessation:Counseling Given: Yes Alcohol Use Standard Drinks/Week Comments Not Currently 0 (1 standard drink = 0.6 oz pur e alcohol) PHQ-2 Answer Date Recorded PHQ-2 TOTAL SCORE 0 03/20/2025 Social Connections Answer Date Recorded Do you often feel lonely or isolated from those around you? 0 02/06/2025 Financial Resource Strain Answer Date R ecorded Difficulty of Paying Living Expenses 3 02/06/2025 Difficulty of Paying Living Expenses Not on file 02/06/2025 Food Insecurity Answer Date Recorded Do you worry your food will run out before you are able to buy more? 1 02/06/2025 Transportation Needs Answer Date Record ed Does lack of transportation keep you from medica l appointments? 1 02/06/2025 Does lack of transportation keep you from work, meetings or getting things that you need? 1 02/06/2025 Housing Stability Answer Date Recorded What is your housing situation today? 1 02/06/2025 Utilities Answer Date Recorded Do you have trouble paying f or utilities (for example, heat, electricity, water, phone)? 1 02/06/2025 Comments No Sex and Gender Information Value Date Recorded Sex Assigned at Not on file Legal Sex Female 6:06 AM [employer] Gender Identity Not on file Sexual Orientation Not on file Occupation Industry Job Start Date Job End Date [employer], computer aided design operator Not on file Not on file Not on jess e Obstetrics History Para Term AB IAB SAB Ectopic Multiple Livin g Live Births 0 0 0 0 0 0 0 0 0 0 Last Filed Vital Signs Vital Sign Reading Time Taken Comments Blood Pressure 118/76 03/20/2025 1:23 PM CDT Pulse 69 03/20/2025 1:23 PM CDT Temperature 36.7 C (98.1 F) 09/23/2022 7:57 AM [employer]URNER Respiratory Rate 16 09/23/2022 7:57 AM [employer] Oxygen Saturation 95% 03/20/2025 1:23 PM CDT Inhaled Oxygen Concentration - - Weight 105 kg (231 lb 6.4 oz) 02/01/2025 1:43 PM CDT Height 166 cm (5' 5.35) 01/10/2025 2:40 PM CDT Body Mass Index 38.1 01/10/2025 2:40 PM CDT Plan of Treatment Health Maintenance Due Date Last Done Comments HIV for age 15-65 1978 Pneumococcal series for age 50+ (1 of 2 - PCV) 1982 Influenza Vaccine (#1) 2025 , 06/25/2022, 08/11/2021 BMI (ht and wt on same day) for age 18+ 01/10/2026 01/10/2025, 03/26/2024, 02/11/2023, Additional history exists Depression screening for age 12+ 03/20/2026 03/20/2025, 02/06/2025, 11/14/2024, Additional history exists Mammogram for age 45-75 03/20/2026 03/20/20 25, 11/11/2023, 08/04/2022 Pap test for age 21-65 04/16/2027 04/16/2022, 2021 Tetanus booster 05/15/2028 05/15/2018 Lipids for age 45-75 01/16/2029 01/17/2024, 11/08/2023, 04/16/2022 Colonoscopy through age 75 08/03/203208/03, 08/03/2022, 05/12/2022, Additional history exists RSV vaccine for adults or (1 - 1-dose 75+ series) 2038 Hepatitis C screening for age 18-79 Completed 04/16/2022 Zoster (shingles) series for age 50+ Completed 12/13/2023, 10/07/2023 COVID-19 vaccine series Completed 08/28/20, 08/03/2023, 08/31/2022, Additional history exists Hepatitis B series for 19+ Aged Out N o longer eligible based on patient's age to complete this topic Medical Devices Implanted Type Area Computer Repair Technician Device Identifier Shelf Expiration Date Model / Serial / Lot Trident Ii Psl Clusterhole Pryor 54e Implanted:Qty: 1 on 09/20/2022 by Vinh Quiros MD at [facility] Left: Hip 06/16/2027 742-11-54E / / [id number] Description:TRIDENT II PSL C LUSTERHOLE PRYOR 54E Screw Hip 6.5x35mm Amy Low Profile Hex - [id number] Implanted:Qty: 1 on 09/20/2022 by Vinh Quiros MD at [facility] Left: Hip [employer] 08/08/2027 [id number] / / [id number] Screw Hip 6.5x15mm [place] Low Profile Hex - [id number] Implanted:Qty: 1 on 09/20/2022 by Vinh Quiros MD at [facility] Left: Hip [employer] 08/29/2027 [id number] / / XNU Screw Hip 6.5x20mm Amy Low Profile Hex - [id number] Implanted:Qty: 1 on 09/20/2022 by Vinh Quiros MD at [facility] Left: Hip [employer] 03/31/2027 [id number] / / [id number] Screw Hip 6.5x15mm [place] Low Profile Hex - [id number] Implanted:Qty: 1 on 09/20/2022 by Vinh Quiros MD at [facility] Left: Hip [employer] 08/29/2027 [id number] / / [id number] Insert Sz E 36mm 10 Deg Trident X3 - [id number] Implanted:Qty: 1 on 09/20/2022 by Vinh Quiros MD at [facility] Left: Hip [employer] 08/09/2027 723-10-36E / / [id number] Stem Hip Sz 8 127 Deg Secur-Fit - [id number] Implanted:Qty: 1 on 09/20/2022 by Vinh Quiros MD at [facility] Left: Hip [employer] 06/01/2027 [id number] / / [id number] Head Hip Od36mm +5 [employer] Delta C-Taper Co Cr - [id number] Implanted:Qty: 1 on 09/20/2022 by Vinh Quiros MD at [facility] Left: Hip [employer] 04/03/2023 [id number] / / [id number] Explanted Type Area Computer Repair Technician Device Identifier Shelf Expiration Date Model / Serial / Lot Explant Explanted:Qty: 1 on 09/20/2022 by Vinh Quiros MD at [facility] Left: Hip Description:FEMORAL HEAD Procedures Procedure Name Priority Date/Time Associated Diagnosis Comments XR MAMMO ISAMAR BILAT SCREEN Routine 03/20/2025 1:09 PM CDT Visit for screening mammogram LIPID PANEL Routine 01/17/2024 12:06 PM CDT Nonrheumatic aortic valve stenosis COLONOSCOPY 08/03/2022 9:37 AM CDT ANTI HCV Routine 04/16/2022 2:03 PM CDT Need for hepatitis C screening test HPV HIGH RISK Routine 04/16/2022 1:06 PM CDT Screening for malignant neoplasm of cervix from Last 3 Months or Most Recently Relevant to Health Maintenance Results * XR MAMMO ISAMAR BILAT SCREEN (03/20/2025 1:09 PM CDT) Anatomical Region Laterality Modality BREASTS, Breast Left, Breast Right Bilateral Mammography Impressions 03/20/2025 3:39 PM CDT There is no radiographic evidence for malignancy. Recommend annual mammograms. MAMMOGRAM ASSESSMENT: ACR 1 Negative PATIENTS: You will also receive a letter with your examination results in an easy to read format. If you have questions about your results, please contact your referring provider. Narrative 03/20/2025 3:39 PM CDT For Patients: As a result of the Century Cures Act, medical imaging exams and procedure reports are released immediately into your electronic medical record. You may view this report before your referring provider. If you have questions, please contact your health care provider. XR MAMMO ISAMAR BILAT SCREEN [[id number]] CLINICAL HISTORY: This is an asymptomatic 59 y.o. patient. INDICATION FOR EXAM: Mammogram Screening. TECHNIQUE: CC and MLO views were obtained. This study was evaluated with the assistance of Computer-Aided Detection. Breast Tomosynthesis was used in interpretation. COMPARISON FILM: Yes 11/11/23 [employer] [facility] 08/04/22 [facility] [employer] retargeting FINDINGS: The breasts are almost entirely fatty. There are no dominant masses, suspicious micro calcifications or areas of architectural distortion. us Kendra Whitt MD MAMMO Fi nal Result * (ABNORMAL) LIPID PANEL (01/17/2024 12:06 PM CDT) CHOLESTEROL,TOTAL 224(H) 100 - 199 mg/dL 01/17/2024 9:42 PM CDT [facility] Comment: Cholesterol, Total Reference Ranges Desirable <200 mg/dL Borderline 200-239 mg/dL High >=240 mg/dL TRIGLYCERIDES 88 <150 mg/dL 01/17/2024 9:42 PM CDT [facility] HDL CHOLESTEROL 57 >40 mg/dL 9:42 PM CDT [facility] NON-HDL CHOLESTEROL 167(H) <145 mg/dl 01/17/2024 9:42 PM CDT [facility] CHOL/HDL RATIO 3.93 <4.50 01/17/2024 9:42 PM CDT [facility] LDL CHOLESTEROL 149(H) <=130 mg/dL 01/17/2024 9:42 PM CDT [facility] VLDL CHOLESTEROL 18 <=30 mg/dL 01/17/2024 9:42 PM CDT [facility] PROVIDER ORDERED STATUS RANDOM 01/17/2024 9:42 PM CDT [facility] Blood BLOOD SPECIMEN / Unknown Butterfly / Unknown 01/17/2024 12:06 PM CDT 01/17/2024 12:07 PM CDT us Terry Aggarwal MD, PhD CHEMISTRY Fin al Result [facility] [address] [place] [address], [place] * COLONOSCOPY (08/03/2022 9:37 AM CDT) 08/03/2022 9:37 AM CDT Narrative Transcriptions Marcin Danielle MD - 08/03/2022 11:12 AM CDT Patient Name: Sarah Mcclendon Procedure Date: 08/03/2022 Gender: Female Date of : 1965 Admit Type: Outpatient Procedure: Colonoscopy Proceduralist: Marcin Danielle MD , Mignon Klein, RN(Nurse), Sheryl Ramirez (Nurse) Indications/Pre-Op Diagnosis: Unexplained iron deficiency anemia, This isthe patient's first colonoscopy, Hematochezia Medications: Fentanyl 100 micrograms IV, Midazolam 1 mgIV Procedure Description: The patient had risks, benefits and alternatives explained to andgave informed consent. The patient had a stable cardiopulmonary status and judged an adequate candidate for conscious sedation. The [id number] was passed through the anus and advanced to the cecum, identified by appendiceal orifice and ileocecal valve. Thecolonoscopy was performed without difficulty. The patient tolerated the procedure well. The quality of the bowel preparation was good. Anatomical landmarks were photographed. Complications: No immediate complications. Estimated Blood Loss & Specimen: Estimated blood loss: none. Specimen collected - None Findings: The perianal and digital rectal examinations were normal. The colon (entire examined portion) was significantly tortuous. Advancing the scope required changing the patient to a supineposition and using manual pressure. The exam was otherwise without abnormality. Impressions/Post-Op Diagnosis: - Tortuous colon. - The examination was otherwise normal. - No specimens collected. Recommendation: - Patient has a contact number available for emergencies. The signsand symptoms of potential delayed complications were discussed with the patient. Return to normal activities tomorrow. Written discharge instructions were provided to the patient. - Resume previous diet. - Continue present medications. - Repeat colonoscopy in 10 years for screening purposes. Moderate Sedation: A time out was performed before the procedure. Moderate (conscious) sedation was administered by the endoscopy nurse and supervised bythe endoscopist. The following parameters were monitored: oxygensaturation, heart rate, blood pressure, EKG, CO2, respiratory rate, adequacy of pulmonary ventilation and reponse to care. Please refer to the patient's medical record flowsheets and nursing notes for moderate sedation details. Total physician intraservice time was 30 minutes. Marcin Danielle MD 08/03/2022 11:12:26 AM This report has been signed electronically. Note Initiated On: 08/03/2022 9:37 AM Procedure Code(s): --- Professional --- 82810, Colonoscopy, flexible; diagnostic, including collection of specimen(s) bybrushing or washing, when performed (separateprocedure) Diagnosis Code(s): --- Professional --- D50.9, Iron deficiency anemia, unspecified K92.1, Melena (includes Hematochezia) Q43.8, Other specified congenitalmalformations of intestine CPT copyright 2020 [employer]. All rights reserved. The codes documented in this report are preliminary and upon concessions manager reviewmay be revised to meet current compliance requirements. Scope In: 10:38:00 AM Scope Withdrawal Time 0 hours 6 minutes 7 seconds Scope Out: 11:06:56 AM Marcin Danielle MD PROCEDURE ORD Final Res ult * ANTI HCV (04/16/2022 2:03 PM CDT) HEPATITIS C ANTIBODY Non-React roosevelt Non-React roosevelt 04/17/2022 12:29 AM CDT [facility] Comment:Antibodies to HCV no t detected; does not exclude the possibility of exposure to HCV. Blood BLOOD SPECIMEN / Unknown Venipuncture / Unknown 04/16/2022 2:03 PM CDT 04/16/2022 2:05 PM CDT Nemo HOLDER SEND OUTS Final Resu lt Performing Organization Address City/[facility]/ZIP Co de Phone Number [facility] [address] [place] [address], * HPV HIGH RISK (04/16/2022 1:06 PM CDT) TYPE 16 Negative Negative 04/20/2022 2:54 PM CDT [facility] TYPE 18 Negative Negative 04/20/2022 2:54 PM CDT [facility] OTHER HIGH RISK TYPES Negative Negative 04/20/2022 2:54 PM CDT [facility] Other (Cervical) Non-Blood / Unknown 04/16/2022 1:06 PM CDT 04/19/2022 9:40 AM CDT Narrative [facility] - 04/20/2022 2:54 PM CDT HPV types 16, 18, 31, 33, 35, 39, 45, 51, 52, 56, 58, 59, 66 and 68 DNA were undetectable or below the pre-set threshold. Methodology: [employer] Candido 4800 HPV Test Nemo HOLDER MICROBIOLOGY Final Resu lt [facility] [address] [place] [address], from Last 3 Months or Most Recently Relevant to Health Maintenance Insurance MEDICAID MEDICARE PART A HB ONLY MEDICARE PART B HB ONLY MEDICARE PB ONLY Advance Directives * Full Code (Latest Code Status on File) Date Activated Date Inactivated Comments 09/20/2022 12:49 PM 09/23/2022 1:15 PM Question Answer Comments Code Status Discussion: Unable to Assess Preferences, Provider to review later * Full Code Date Activated Date Inactivated Comments 05/10/2022 9:59 AM 05/10/2022 2:01 PM Question Answer Comments Code Status Discussion: Unable to Assess Preferences, Provider to review later Care Teams Back Feeder Plywood Layup Line Relationship Specialty Start Date End Date Kendra [place] [address] [place] [address] PCP - General Family Practice 11/08/23
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
--- NOTE | 2025-05-02 12:44 | CRLHL7_ITS ---
For Patients: As a result of the Century Cures Act, medical imaging exams and procedure reports are released immediately into your electronic medical record. You may view this report before your referring provider. If you have questions, please contact your health care provider. INDICATION: Fall, back pain TECHNIQUE: CT cervical spine without contrast. COMPARISON: None FINDINGS: No evidence of fracture or suspicious bony lesions. Disc Spaces Occipital-C2: Unremarkable. C2/3: Facet hypertrophy without significant stenosis. C3/4: Facet hypertrophy without significant stenosis. C4/5: Facet hypertrophy C4-5 without significant stenosis. C5/6: Disc space narrowing with anterior and posterior osteophytes without significant stenosis. C6/7: Disc space narrowing with posterior osteophytes without significant stenosis. C7/T1: Facet hypertrophy without significant stenosis. Other: None. IMPRESSION: Modest degenerative changes cervical spine without evidence of cervical spine fracture. Please note that all CT scans at this facility use dose modulation, iterative reconstruction, and/or weight-based dosing when appropriate to reduce radiation dose to as low as reasonably achievable. Dictated by Emmanuel Azevedo MD @ 05/02/2025 1:46:45 PM (Electronically Signed)
--- NOTE | 2025-05-02 12:44 | CRLHL7_ITS ---
For Patients: As a result of the Cures Act, medical imaging exams and procedure reports are released immediately into your electronic medical record. You may view this report before your referring provider. If you have questions, please contact your health care provider. Indication: Injury, pain with movement Technique: Three views right shoulder Comparison: None Findings/Impression: No definite evidence of fracture. Shoulder is held in persistent internal rotation without evidence of dislocation. Acromioclavicular joint unremarkable. Dictated by Emmanuel Azevedo MD @ 05/02/2025 1:48:58 PM (Electronically Signed)
--- NOTE | 2025-05-02 12:44 | CRLHL7_ITS ---
For Patients: As a result of the Century Cures Act, medical imaging exams and procedure reports are released immediately into your electronic medical record. You may view this report before your referring provider. If you have questions, please contact your health care provider. INDICATION: Fall, back pain TECHNIQUE: CT chest, abdomen and pelvis acquired with no intravenous contrast. COMPARISON: None. FINDINGS: CHEST: Cardiovascular structures: Thoracic aorta is normal in caliber with atherosclerotic calcification. No pericardial effusion. Mild coronary atherosclerosis. Mediastinum and goyo: No enlarged mediastinal lymph nodes. Small hiatal hernia. Lungs and pleura: No pleural effusion or pneumothorax. Right upper lobe pulmonary nodule measuring 7 millimeters (5, 19). There is discoid atelectasis at the lung bases. Calcification of the left hemidiaphragm. Chest wall and axilla: No mass or adenopathy. Bones: No suspicious bone lesions. Unremarkable for age. ABDOMEN AND PELVIS: Liver: Unremarkable. Gallbladder and bile ducts: Cholelithiasis without pericholecystic inflammation. Pancreas: Mild pancreatic atrophy. Spleen: Unremarkable. Adrenal glands: Unremarkable. Kidneys: Unremarkable. GI tract: Small hiatal hernia. Stomach decompressed. No dilated loops of large or small intestine. Vascular structures: Atherosclerosis without abdominal aortic aneurysm Lymph nodes: Unremarkable. Miscellaneous: Unremarkable. No free air or significant free fluid. Pelvic Organs: Minimal calcifications adjacent to the left ovary. Diminutive ovarian tissue. Bones: Status post left total hip replacement. Right hip osteoarthritis. IMPRESSION: 1. No evidence of acute traumatic injury to the chest, abdomen or pelvis. 2. Right upper lobe pulmonary nodule measuring 7 millimeters. Management as per Fleischner society criteria below. 3. Small hiatal hernia. 4. Cholelithiasis without CT evidence of cholecystitis. SOCIETY GUIDELINES - SOLID NODULES: SINGLE LOW RISK - nodule 6-8 mm: CT at 6-12 months, then consider CT at 18-24 months. SINGLE HIGH RISK - nodule 6-8 mm: CT at 6-12 months, then CT at 18-24 months. Please note that all CT scans at this facility use dose modulation, iterative reconstruction, and/or weight-based dosing when appropriate to reduce radiation dose to as low as reasonably achievable. Dictated by Emmanuel Azevedo MD @ 05/02/2025 2:03:16 PM (Electronically Signed)
--- OUTSIDE RECORDS SUMMARY | 2025-05-02 12:53 | XMS_ITS ---
Author Organization [facility] ter Care Team Providers Care Boat Camp Operator Name Role Phone Ani Conner Unavailable Unavailable Leno Morales Unavailable Unavailable Allergies and adverse reactions No Known Allergies Care Team Name Role Address Phone Organization Dates Leno Morales [facility] [address] [place] [address], [address], [place], [place], [facility], [place] States (Office): [facility] 09/23/2022 - 10/01/2022 Ani Conner Gen[facility] [address] [place] [address] [address], [place], [facility], [place] States (Office): : [facility] 09/23/2022 - 10/01/2022 Immunizations Immunization Status Vaccine Details Vaccine Code CodeSystem Ed e Notes TB 2 Step Mantoux Skin Test completed tuberculin skin test; unspecified formulation lotNumber: [id number] expiry: 03/24/2025 Mfg: [employer] Given 0.1 [...] Concern Status 1 ACUTE POSTHEMORRHAGIC ANEMIA 09/23/[address] active 2 AFTERCARE FOLLOWING JOINT REPLACEMENT SURGERY 09/23/[address] active 3 CONSTIPATION, UNSPECIFIED 09/23/[address] active 4 IRON DEFICIENCY ANEMIA, UNSPECIFIED 09/23/[address] active 5 PRESENCE OF LEFT ARTIFICIAL HIP JOINT 09/23/[address] active 6 VENTRAL HERNIA WITHOUT OBSTRUCTION OR GANGRENE 09/23/[address] active Reason for Referral No Reasons for Referral Entered Social History Social History Observation Description Start Date End Date Code Code System Current Smoking Status Tobacco smoking consumption unknown 666237901 SNOMED CT Sex Assigned At Female 1965 46428-3 [facility] Gender Identity Vital Signs Code Code System Vitals Name Values and Units Timing Information 8310-5 [facility] Body Temperature Value=98.2 Units= F 09/30/2022 12715-1 INC O2 % BldC Oximetry Value=99.0 Units= % 09/30/2022 71018-7 INC Pain Level Value=1.0 09/30/2022 03530-0 LOINC Weight Odjuq=799.0 Units=Lbs 04/2022 9279-1 INC Respiratory Rate Value=18.0 Units=/m in 09/24/2022 8462-4 INC Blood Pressure-Diastolic Value=88 Un its=mmHg 09/24/2022 8480-6 LOINC Blood Pressure-Systolic Whgww=261 Un its=mmHg 09/24/2022 8867-4 LOINC Heart rate Value=71.0 Units=/min 11/2021 8302-2 LOINC Height Value=63.0 Units=Inches 09/24/2022
[2025-05-02 13:49] LABS: Appearance Urine Clear (Clear)
== END 2025-05-02 14:43 | disposition home or self-care (01) ==
PROVIDERS: Emergency Provider Family Medicine; PCP Student in an Organized Health Care Education/Training Program
DX: S39.92XA Unspecified injury of lower back, initial encounter (principal); S46.001A Unspecified injury of muscle(s) and tendon(s) of the rotator cuff of right shoulder, initial encounter; R91.1 Solitary pulmonary nodule; I35.0 Nonrheumatic aortic (valve) stenosis; W18.2XXA Fall in (into) shower or empty bathtub, initial encounter
CPT/HCPCS: 71250; 72125; 73030; 74176; 81001; 99284; 99285

== ENCOUNTER 2025-05-14 07:43 | Outpatient (CLI) | payer MEDICARE, MEDICAID, SELFPAY ==
--- NOTE | 2025-05-14 08:15 | MR_ITS ---
[address] [address] Phone:?[phone] Fax:?[phone] Referring Physician Information: Daniel Trevino M.D. [id number] [facility] [address] Phone:?[phone] Fax:?[phone] Patient:Ange Mcclendon D.O.B:?1965 Sex:?Female Phone:?[phone] [facility] MRN:?[id number] Exam Date:?05/14/2025 EXAM: MRI of the RIGHT SHOULDER, without contrast CLINICAL: Evaluate for rotator cuff tear. COMPARISONS: X-rays 05/02/2025. TECHNICAL: Multiplanar multisequence MRI of the right shoulder was obtained. SEDATION: None. CONTRAST: None. FINDINGS: Rotator cuff: Supraspinatus/Infraspinatus: There is mild to moderate tendinosis of the distal supraspinatus and infraspinatus tendons. There is high-grade partial interstitial insertional tearing of the distal supraspinatus tendon involving approximately 70% of the tendon thickness on coronal series 7 image 11. Moderate partial articular surface tearing also involves the proximal supraspinatus tendon involving approximately 60% of the tendon thickness on sagittal series 11 image 9 and coronal series 7 image 12-13. No significant infraspinatus tendon tear. No significant fatty atrophy of the muscles. Teres minor: No tendinosis, tear or atrophy. Subscapularis: Mild to moderate tendinosis of the distal tendon without evidence of significant tendon tear. No significant fatty atrophy of the muscle. Bursae: Subacromial-subdeltoid: Minimal bursal fluid. Subcoracoid: Moderate bursal fluid. Coracoacromial arch: Acromion morphology: Type II. No os acromiale. Acromiohumeral space: Within normal limits. Coracohumeral space: Moderately narrowed. Biceps tendon, long head: No tendinosis, tendon tear or displacement. Glenohumeral joint: Relatively small glenohumeral joint effusion is present with synovitis or intra- articular bodies within the axillary recess. Articular cartilage: There is full-thickness chondral loss involving the superior and superomedial humeral head. No glenoid chondral defects identified. Capsule: No evidence of capsular thickening or injury. Labrum: There is tearing throughout the superior labrum with attenuation/degeneration of the remainder of the labrum. Bones: No suspicious marrow signal alteration, fracture or dislocation. Acromioclavicular joint: Mild changes of arthrosis. No AC joint injury/widening. IMPRESSION: 1. Mild to moderate tendinosis of the distal supraspinatus, infraspinatus and subscapularis tendons. There is high-grade partial interstitial insertional tearing of the distal supraspinatus tendon with moderate partial articular surface tearing of the more proximal supraspinatus tendon. 2. Full-thickness chondral loss involving the superior and superomedial humeral head. There is synovitis or intra-articular bodies noted within the axillary recess of the glenohumeral joint. 3. Tearing throughout the superior labrum with attenuation and degeneration of the remainder of the labrum. 4. Mild AC joint arthrosis. 5. Moderate subcoracoid bursitis. JCZ Electronically signed on 05/14/2025 10:56:00 AM by Raghav Gonzalez D.O.
== END 2025-05-14 07:44 | disposition home or self-care (01) ==
LOC: MRI 07:44
PROVIDERS: PCP Student in an Organized Health Care Education/Training Program; Visit Provider Orthopaedic Surgery Sports Medicine
DX: M25.511 Pain in right shoulder (principal); M75.101 Unspecified rotator cuff tear or rupture of right shoulder, not specified as traumatic; S43.431A Superior glenoid labrum lesion of right shoulder, initial encounter; M19.011 Primary osteoarthritis, right shoulder; M75.51 Bursitis of right shoulder; S46.011A Strain of muscle(s) and tendon(s) of the rotator cuff of right shoulder, initial encounter
CPT/HCPCS: 73221

== ENCOUNTER 2025-06-11 09:27 | Outpatient (CLI) | payer MEDICARE, MEDICAID, SELFPAY | END 2025-06-11 09:28 | disposition home or self-care (01) | LOC: AMB 06-12 13:38 | PROVIDERS: PCP Student in an Organized Health Care Education/Training Program; Visit Provider Family Medicine | DX: R42 Dizziness and giddiness (principal) | CPT/HCPCS: A0425; A0429 ==

== ENCOUNTER 2025-06-11 09:38 | Emergency (ER) | payer MEDICARE, MEDICAID, SELFPAY ==
--- OUTSIDE RECORDS SUMMARY | 2025-06-11 09:41 | XMS_ITS | Clinical Summary ---
Author Organization [employer] [facility] Address [facility] [place] [address] Care Team Providers Care Emergency Crew Supervisor Name Role Phone Kendra Whitt MD Primary [...] Daily 1 Each 11 5 Active sertraline (ZOLOFT) 100 mg tabletIndication s:Major depressive disorder, recurrent, moderate (HC) Take 1 Tablet (100 mg) by mouth once daily in the morning. 90 Tablet 2 5 Active Active Problems Problem Noted Date [...] Encounters Date Type Department Care Team Description 06/11/2025 Nurse Triage [facility] [address] [place] [address] Kendra Whitt MD Dizziness 05/14/2025 Orders Only [facility] Scanner 1 scan: (1-Ord) [facility], MRI OF RT SHOULDER WITHOUT CONTRAST, 05/14/2025 05/07/2025 Telephone [facility] [address] [facility] [place] [address] Kendra Whitt MD Refill Request ( sertraline 100 mg tablet/) 05/06/2025 Refill [facility] [address] [place] [address] Kendra Whitt MD Refill Request (Sertraline) 05/02/2025 Orders Only [facility] Scanner 1 scan: (1-Ord) [facility], CT CHEST ABDOMEN PELV WO CON, 05/02/2025 05/02/2025 Orders Only [facility] Scanner 1 scan: (1-Ord) [facility], SHOULDER RT MIN 2V, 05/02/2025 05/02/2025 Orders Only [facility] Scanner 1 scan: (1-Ord) [facility], CERVICAL SPINE WO CONTRAST, 05/02/2025 03/20/2025 1:25 PM CDT Office Visit [facility] [address] [place] [place] [address] Kendra Whitt MD Medication Management (Sertraline - happy with dosing ) 03/20/2025 1:00 PM CDT Ancillary Procedure [facility] [address] [place] [address] 03/20/2025 Travel from Last 3 Months Immunizations Immunization Administration Dates Next Due COVID-19 VACCINE SPIKEVAX (M ODERNA 50MCG/0.5ML) 12YO+ PFS 08/03/2023 COVID-19 vaccine ([employer]-Bio NTech 30mcg/0.3mL) 12YO+ BIVALENT PF, MDV 08/31/2022 COVID-19 vaccine (Pfizer-Bio NTech 30mcg/0.3mL) 12YO+ RAINA-SUCROSE PF, MDV 04/16/2022 [...] on file Legal 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 Gender Identity Not on file Sexual Orientation Not on file Occupation Industry Job Start Date Job End Date [employer], preschool teacher aide Not on file Not on file Not [...] 36.7 C (98.1 F) 09/23/2022 7:57 AM AIRPORT SHUTTLE DRIVER Respiratory Rate 16 09/23/2022 7:57 AM AIRPORT SHUTTLE DRIVER Oxygen Saturation 95% 03/20/2025 1:23 PM CDT [...] this topic Medical Devices Implanted Type Area Assistant Chief Train Dispatcher Device Identifier Shelf Expiration Date Model / Serial / Lot Trident Ii Psl Clusterhole Pryor 54e Implanted:Qty: 1 on 09/20/2022 by Vinh Quiros MD at [facility] Left: Hip 06/16/2027 742-11-54E / / [id number] Description:TRIDENT II PSL C LUSTERHOLE PRYOR 54E Screw Hip 6.5x35mm Amy Low Profile Hex - [id number] Implanted:Qty: 1 on 09/20/2022 by Vinh Quiros MD at [facility] Left: Hip [employer] 08/08/2027 [id number] / / [id number] Screw Hip 6.5x15mm Amy Low Profile Hex - [id number] Implanted:Qty: 1 on 09/20/2022 by Vinh Quiros MD at [facility] Left: Hip [employer] 08/29/2027 [id number] / / XNU Screw Hip 6.5x20mm Mcmillan Low Profile Hex - [id number] Implanted:Qty: 1 on 09/20/2022 by Vinh Quiros MD at [facility] Left: Hip [employer] 03/31/2027 [id number] / / [id number] Screw Hip 6.5x15mm Mcmillan Low Profile Hex - [id number] Implanted:Qty: 1 on 09/20/2022 by Vinh Quiros MD at [facility] Left: Hip [employer] 08/29/2027 [id number] / / [id number] Insert Sz E 36mm 10 Deg Trident X3 - [id number] Implanted:Qty: 1 on 09/20/2022 by Vinh Quiros MD at [facility] Left: Hip [employer] 08/09/2027 723-10-36E / / [id number] Stem Hip Sz 8 127 Deg Secur-Fit - [id number] Implanted:Qty: 1 on 09/20/2022 by Vinh Quiros MD at [facility] Left: Hip [employer] 06/01/2027 [id number] / / [id number] Head Hip Od36mm +5 Biolox Delta C-Taper Co Cr - [id number] Implanted:Qty: 1 on 09/20/2022 by Vinh Quiros MD at [facility] Left: Hip [employer] 04/03/2023 [id number] / / [id number] Explanted Type Area Assistant Chief Train Dispatcher Device Identifier Shelf Expiration Date Model / Serial / Lot Explant Explanted:Qty: 1 on 09/20/2022 by Vinh Quiros MD at [facility] Left: Hip Description:FEMORAL HEAD Procedures Procedure Name Priority Date/Time Associated Diagnosis Comments SCAN-MRI INTERPRETATION 05/14/20 12:00 AM CDT SCAN-CT INTERPRETATION 12:00 AM CDT SCAN-RADIOLOGY REPORT 05/02/2025 12:00 AM CDT SCAN-CT INTERPRETATION 5 12:00 AM CDT XR MAMMO ISAMAR BILAT SCREEN Routine 03/20/2025 [...] Recently Relevant to Health Maintenance Results * SCAN-MRI INTERPRETATION (05/14/2025 12:00 AM CDT) Anatomical Region Laterality Modality Other us Scanner OTHER Final Result * SCAN-RADIOLOGY REPORT (05/02/2025 12:00 AM CDT) Anatomical Region Laterality Modality Other us Scanner OTHER Final Result * SCAN-CT INTERPRETATION (05/02/2025 12:00 AM CDT) Only the most recent of2 resultswithin the time period is included. Anatomical Region Laterality Modality Other us Scanner OTHER Final Result * XR MAMMO ISAMAR BILAT SCREEN (03/20/2025 [...] For Patients: As a result of the 21st Century Cures Act, medical imaging exams and procedure reports are released immediately into your electronic medical record. You may view this report before your referring provider. If you have questions, please contact your health care provider. XR MAMMO ISAMAR BILAT SCREEN [[id number]] CLINICAL HISTORY: This is an asymptomatic 59 y.o. patient. INDICATION FOR EXAM: Mammogram Screening. TECHNIQUE: CC and MLO views were obtained. This study was evaluated with the assistance of Computer-Aided Detection. Breast Tomosynthesis was used in interpretation. COMPARISON FILM: Yes 11/11/23 [facility] 08/04/22 [facility] FINDINGS: The breasts are almost entirely fatty. There are no dominant masses, suspicious micro calcifications or areas of architectural distortion. us Kendra Whitt MD MAMMO Fi nal Result * (ABNORMAL) LIPID PANEL (01/17/2024 12:06 PM CDT) CHOLESTEROL,TOTAL 224(H) 100 - 199 mg/dL 01/17/2024 9:42 PM CDT [facility] Comment: Cholesterol, Total Reference Ranges Desirable <200 mg/dL Borderline 200-239 mg/dL High >=240 mg/dL TRIGLYCERIDES 88 <150 mg/dL 01/17/2024 9:42 PM CDT [facility] HDL CHOLESTEROL 57 >40 mg/dL 9:42 PM CDT [facility] NON-HDL CHOLESTEROL 167(H) <145 mg/dl 01/17/2024 9:42 PM CDT [facility] CHOL/HDL RATIO 3.93 <4.50 01/17/2024 9:42 PM CDT [facility] LDL CHOLESTEROL 149(H) <=130 mg/dL 01/17/2024 9:42 PM CDT [facility] VLDL CHOLESTEROL 18 <=30 mg/dL 01/17/2024 9:42 PM CDT [facility] PROVIDER ORDERED STATUS RANDOM 01/17/2024 9:42 PM CDT [facility] Blood BLOOD SPECIMEN / Unknown Butterfly / Unknown 01/17/2024 12:06 PM CDT 01/17/2024 12:07 PM CDT us Terry Aggarwal MD, PhD CHEMISTRY Fin al Result [facility] [address] [place] [address], * COLONOSCOPY (08/03/2022 9:37 AM CDT) 08/03/2022 9:37 AM CDT Narrative Transcriptions Marcin Danielle, MD - 08/03/2022 11:12 AM CDT Patient [...] an adequate candidate for conscious sedation. The [id number] was passed through the anus and advanced [...] 9:37 AM Procedure Code(s): --- Professional --- 23911, Colonoscopy, flexible; diagnostic, including collection of specimen(s) bybrushing or washing, when performed (separateprocedure) Diagnosis Code(s): --- Professional --- D50.9, Iron deficiency anemia, unspecified K92.1, Melena (includes Hematochezia) Q43.8, Other specified congenitalmalformations of intestine CPT copyright 2020 [employer]. All rights reserved. The codes documented in this report are preliminary and upon manager recovery reviewmay be revised to meet current compliance requirements. Scope In: 10:38:00 AM Scope Withdrawal Time 0 hours 6 minutes 7 seconds Scope Out: 11:06:56 AM us Marcin Danielle MD PROCEDURE ORD Final Res ult * ANTI HCV (04/16/2022 2:03 PM CDT) HEPATITIS C ANTIBODY Non-React roosevelt Non-React roosevelt 04/17/2022 12:29 AM CDT [facility] Comment:Antibodies to HCV no t detected; does not exclude the possibility of exposure to HCV. Blood BLOOD SPECIMEN / Unknown Venipuncture / Unknown 04/16/2022 2:03 PM CDT 04/16/2022 2:05 PM CDT us Nemo HOLDER SEND OUTS Final Resu lt [facility] [address] [place] [address], * HPV HIGH RISK (04/16/2022 1:06 PM CDT) TYPE 16 Negative Negative 04/20/2022 2:54 PM CDT [facility] TYPE 18 Negative Negative 04/20/2022 2:54 PM CDT [facility] OTHER HIGH RISK TYPES Negative Negative 04/20/2022 2:54 PM CDT [facility] Other (Cervical) Non-Blood / Unknown 04/16/2022 1:06 PM CDT 04/19/2022 9:40 AM CDT Narrative [facility] - 04/20/2022 2:54 PM CDT HPV types 16, 18, 31, 33, 35, 39, 45, 51, 52, 56, 58, 59, 66 and 68 DNA were undetectable or below the pre-set threshold. Methodology: Yoselin Candido 4800 HPV Test us Nemo HOLDER MICROBIOLOGY Final Resu lt Performing Organization Address [facility]/ZIP Co de Phone Number [facility] [address] [place] [address], from Last 3 Months or Most Recently Relevant to Health Maintenance Insurance MEDICAID MEDICARE PART A HB ONLY Member Subscriber Plan / Payer (Ef fective 2024-Present) Name:Sarah Mcclendon Member ID:[id number] Relation to Subscriber:Self Name:Sarah Mcclendon Subscriber ID:[id number] Payer ID:Not on file Group ID:Not on file Type:Not on file Address: ATTN: CLAIMS [address] MEDICARE PART B HB ONLY MEDICARE PB ONLY Member Subscriber Plan / Payer ( fective 2024-Present) Name:Sarah Mcclendon Member ID:[id number] Relation to Subscriber:Self Name:Sarah Mcclendon Subscriber ID:[id number] Payer ID:Not on file Group ID:Not on file Type:Not on file Address: ATTN: CLAIMS [address] Advance Directives * Full Code (Latest Code [...] Preferences, Provider to review later Care Teams Emergency Crew Supervisor Relationship Specialty Start Date End Date Kendra [place] [address] PCP - General Family Practice 11/08/23
--- OUTSIDE RECORDS SUMMARY | 2025-06-11 09:41 | XMS_ITS ---
Author Organization [facility] ter Care Team Providers Care Documentation Lead Name Role Phone Ani Conner Unavailable Unavailable Leno Morales Unavailable Unavailable Allergies and adverse reactions No Known Allergies Care Team Name Role Address Phone Organization Dates Leno Morales [facility] [address] [place] [address], [address], [place], [place], [facility], [place] (Office): [facility] 09/23/2022 - 10/01/2022 Ani Conner [facility] [address] [place] [address] [address], [place], [facility], [place] (Office): : [facility] 09/23/2022 - 10/01/2022 Immunizations Immunization Status Vaccine Details Vaccine Code CodeSystem Ed e Notes TB 2 Step Mantoux Skin Test completed tuberculin skin test; unspecified formulation lotNumber: [id number] expiry: 03/24/2025 Mfg: Sanof[employer] P[employer] Given 0.1 [...] Concern Status 1 ACUTE POSTHEMORRHAGIC ANEMIA 09/23/[address] active 2 AFTERCARE FOLLOWING JOINT REPLACEMENT SURGERY 09/23/[address] active 3 CONSTIPATION, UNSPECIFIED 09/23/[address] active 4 IRON DEFICIENCY ANEMIA, UNSPECIFIED 09/23/[address] active 5 PRESENCE OF LEFT ARTIFICIAL HIP JOINT 09/23/[address] active 6 VENTRAL HERNIA WITHOUT OBSTRUCTION OR GANGRENE 09/23/[address] active Reason for Referral No Reasons for Referral Entered Social History Social History Observation Description Start Date End Date Code Code System Current Smoking Status Tobacco smoking consumption unknown 403304032 SNOMED CT Sex Assigned At Female 1965 71410-4 [facility] Gender Identity Vital Signs Code Code System Vitals Name Values and Units Timing Information 8310-5 [facility] Body Temperature Value=98.2 Units= F 09/30/2022 48370-9 INC O2 % BldC Oximetry Value=99.0 Units= % 09/30/2022 10540-7 INC Pain Level Value=1.0 09/30/2022 04573-0 LOINC Weight Kcrqb=316.0 Units=Lbs 04/2022 9279-1 INC Respiratory Rate Value=18.0 Units=/m in 09/24/2022 8462-4 INC Blood Pressure-Diastolic Value=88 Un its=mmHg 09/24/2022 8480-6 LOINC Blood Pressure-Systolic Huzqc=912 Un its=mmHg 09/24/2022 8867-4 LOINC Heart rate Value=71.0 Units=/min 11/2021 8302-2 LOINC Height Value=63.0 Units=Inches 09/24/2022
[2025-06-11 09:51] VITALS: BP 168/77; PULSE 76; RESP 18; TEMP 36.8; O2SAT 96; BMI 38.1
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
--- OUTSIDE RECORDS SUMMARY | 2025-06-11 10:51 | XMS_ITS ---
Author Organization [facility] ter Care Team Providers Care Pool Attendant Name Role Phone Ani Conner Unavailable Unavailable Leno Morales Unavailable Unavailable Allergies and adverse reactions No Known Allergies Care Team Name Role Address Phone Organization Dates Leno Morales [facility] [address] [place] [address], [address], [place], [place], [facility], [place] (Office): [facility] 09/23/2022 - 10/01/2022 Ani Conner [facility] [address] [place] [address] [address], [place], [facility], [place] (Office): : [facility] 09/23/2022 - 10/01/2022 Immunizations Immunization Status Vaccine Details Vaccine Code CodeSystem Ed e Notes TB 2 Step Mantoux Skin Test completed tuberculin skin test; unspecified formulation lotNumber: [id number] expiry: 03/24/2025 Mfg: [employer] Given 0.1 [...] Concern Status 1 ACUTE POSTHEMORRHAGIC ANEMIA 09/23/[address] active 2 AFTERCARE FOLLOWING JOINT REPLACEMENT SURGERY 09/23/[address] active 3 CONSTIPATION, UNSPECIFIED 09/23/[id number] active 4 IRON DEFICIENCY ANEMIA, UNSPECIFIED 09/23/[address] active 5 PRESENCE OF LEFT ARTIFICIAL HIP JOINT 09/23/[address] active 6 VENTRAL HERNIA WITHOUT OBSTRUCTION OR GANGRENE 09/23/[address] active Reason for Referral No Reasons for Referral Entered Social History Social History Observation Description Start Date End Date Code Code System Current Smoking Status Tobacco smoking consumption unknown 583933654 SNOMED CT Sex Assigned At Female 1965 89303-4 [facility] Gender Identity Vital Signs Code Code System Vitals Name Values and Units Timing Information 8310-5 [facility] Body Temperature Value=98.2 Units= F 09/30/2022 22994-7 INC O2 % BldC Oximetry Value=99.0 Units= % 09/30/2022 25763-5 INC Pain Level Value=1.0 09/30/2022 37970-6 [facility] Weight Modss=496.0 Units=Lbs 04/2022 9279-1 INC Respiratory Rate Value=18.0 Units=/m in 09/24/2022 8462-4 INC Blood Pressure-Diastolic Value=88 Un its=mmHg 09/24/2022 8480-6 [facility] Blood Pressure-Systolic Aeiai=748 Un its=mmHg 09/24/2022 8867-4 LOINC Heart rate Value=71.0 Units=/min 11/2021 8302-2 LOINC Height Value=63.0 Units=Inches 09/24/2022
[2025-06-11 11:20] LABS: Hematocrit 44.8 % (33.0-51.0); Hemoglobin* 14.3 gm/dL (12.0-16.0); Immature Granulocytes Abs Auto 0.04 K/uL (0.00-0.30); Immature Granulocytes Pct Auto 0.8 %; Lymphocytes Absolute Auto 1.02 K/uL (0.90-2.90); Mean Corpuscular HGB Conc 32 gm/dL (32-36); Mean Corpuscular Hemoglobin 30 pg (26-34); Mean Corpuscular Volume 93 fL (80-100); RDW Coefficient of Variation % 11.6 % (11.5-15.5); Red Blood Count 4.80 m/uL (4.00-5.20); White Blood Count* 4.79 K/uL (4.50-11.00)
[2025-06-11 11:27] LABS: Slide Review Reflex No
[2025-06-11 11:29] LABS: Chloride* 105 mmol/L (96-114); Potassium* 4.0 mmol/L (3.6-5.1); Sodium* 138 mmol/L (135-149)
[2025-06-11 11:32] LABS: Blood Urea Nitrogen* 12 mg/dL (7-30); Creatinine* 0.8 mg/dL (0.5-1.5); Est. Creatinine Clearance* 48.87; Estimated Glomerular Filt Rate 84 ml/min
[2025-06-11 11:33] LABS: Anion Gap 4 mEq/L (7-15); Calcium* 9.5 mg/dL (8.4-10.6); Carbon Dioxide* 29 mmol/L (20-32); Glucose* 102 mg/dL (60-115)
[2025-06-11 12:33] VITALS: BP 149/85; BP 150/118; BP 167/105; PULSE 66; PULSE 80; PULSE 88
== END 2025-06-11 13:33 | disposition home or self-care (01) ==
PROVIDERS: Emergency Provider Family Medicine; PCP Student in an Organized Health Care Education/Training Program
DX: H81.13 Benign paroxysmal vertigo, bilateral (principal)
CPT/HCPCS: 36415; 80048; 85025; 99284

== ENCOUNTER 2025-07-10 08:00 | Outpatient (RCR) | payer MEDICARE, MEDICAID, SELFPAY | END 2025-07-31 13:35 | disposition home or self-care (01) | PROVIDERS: PCP Student in an Organized Health Care Education/Training Program; Visit Provider Physician Assistant | DX: H81.12 Benign paroxysmal vertigo, left ear (principal); Z51.89 Encounter for other specified aftercare | CPT/HCPCS: 95992; 97112; 97161; 97530; 97535 ==